=== PATIENT | female | born 1995 | race Caucasian/White ===

== ENCOUNTER 2018-07-08 13:18 | Emergency (ER) | payer OTHER ==
[2018-07-08 14:12] LABS: Absolute Lymphocytes (CBC) 1.8 K/uL (0.7-4.9); Absolute Monocytes 0.6 K/uL (0.1-1.3); Absolute Neutrophil 8.5 K/uL (1.8-8.0); Basophils % 0.3 % (0-1.3); Eosinophils % 1.5 % (0-4.4); Hematocrit 34.6 % (36.0-45.0); Lymphocytes % 16.3 % (15.3-44.8); MPV 9.9 fL (7.6-11.3); Monocytes % 5.7 % (3.3-12.3); RBC Red Blood Cell Count 3.78 M/uL (3.86-4.86)
[2018-07-08 15:14] LABS: BUN Blood Urea Nitrogen 11 mg/dL (7-18); Bicarbonate 30 mmol/L (21-32); Glucose Level 85 mg/dL (74-106); HCG, Quantitative 80863 mIU/mL (1-3); Potassium 3.5 mmol/L (3.5-5.1); Sodium Level 138 mmol/L (136-145)
[2018-07-08 15:29] LABS: Urine Blood NEGATIVE (NEG); Urine Glucose NEGATIVE (NEG); Urine Protein NEGATIVE (NEG); Urine Specific Gravity 1.015 (1.005-1.030)
--- NOTE | 2018-07-08 16:02 | EDPHYS ---
Physician Documentation [facility] Name: Hellen Leyva Age: 22 yrs Sex: Female : 1995 Arrival Date: 07/08/2018 Time: 13:22 Bed 17 Private MD: ED Physician Danny Delatorre HPI: 07/08 14:22 This 22 yrs old Female presents to ER via Ambulatory with complaints of kb Vaginal Bleeding, + Preg <12wks, Abdominal Cramping. 14:22 The patient presents to the emergency department with vaginal bleeding, described as kb spotting. The estimated gestational age is 7 weeks. course: care: at a clinic, Leakage of Fluid: none appreciated, Ultrasound: the patient has not had an ultrasound, Risk/complications: no obvious risks or complications are appreciated. Previous pregnancies: in previous pregnancies patient has had. Associated signs and symptoms: Pertinent positives: vaginal bleeding, abd cramping. The patient has not experienced similar symptoms in the past. The patient has not recently seen a physician. 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 - Social history:: Smoking status: Patient/guardian denies using tobacco. - Ebola Screening: : No symptoms or risks identified at this time. ROS: 14:22 Constitutional: Negative for fever, chills, and weight loss, Cardiovascular: Negative kb for chest pain, palpitations, and edema, Respiratory: Negative for shortness of breath, cough, wheezing, and pleuritic chest pain, MS/Extremity: Negative for injury and deformity, Skin: Negative for injury, rash, and discoloration, Neuro: Negative for headache, weakness, numbness, tingling, and seizure. 14:22 Abdomen/GI: Positive for abdominal cramps. 14:22 : Positive for vaginal bleeding. Exam: 14:22 Constitutional: This is a well developed, well nourished patient who is awake, alert, kb and in no acute distress. Head/Face: Normocephalic, atraumatic. Chest/axilla: Normal chest wall appearance and motion. Nontender with no deformity. No lesions are appreciated. Cardiovascular: Regular rate and rhythm with a normal S1 and S2. No gallops, murmurs, or rubs. Normal PMI, no JVD. No pulse deficits. Respiratory: Lungs have equal breath sounds bilaterally, clear to auscultation and percussion. No rales, rhonchi or wheezes noted. No increased work of breathing, no retractions or nasal flaring. Back: No spinal tenderness. No costovertebral tenderness. Full range of motion. Skin: Warm, dry with normal turgor. Normal color with no rashes, no lesions, and no evidence of cellulitis. MS/ Extremity: Pulses equal, no cyanosis. Neurovascular intact. Full, normal range of motion. Neuro: Awake and alert, GCS 15, oriented to person, place, time, and situation. Cranial nerves II-XII grossly intact. Motor strength 5/5 in all extremities. Sensory grossly intact. Cerebellar exam normal. Normal gait. 14:22 Abdomen/GI: Inspection: abdomen appears normal, Bowel sounds: normal, in all quadrants, Palpation: soft, in all quadrants, mild abdominal tenderness, in the right lower quadrant and left lower quadrant. Vital Signs: 13:34 BP 111 / 72; Pulse 65; Resp 16; Temp 98.6; Pulse Ox 99% ; Weight 61.23 kg; Height 5 ft. sv 8 in. (172.72 cm); Pain 4/10; 14:23 BP 97 / 55; Pulse 61; Resp 17; Pulse Ox 100% on R/A; tw2 15:55 BP 105 / 65; Pulse 57; Resp 17; Pulse Ox 99% on R/A; tw2 13:34 Body Mass Index 20.52 (61.23 kg, 172.72 cm) sv MDM: 13:37 Patient medically screened. kb 14:22 Data reviewed: vital signs, nurses notes. Data interpreted: Pulse oximetry: on room air kb is 100 %. Interpretation: normal. 16:00 Counseling: I had a detailed discussion with the patient and/or guardian regarding: the kb historical points, exam findings, and any diagnostic results supporting the discharge/admit diagnosis, lab results, radiology results, the need for outpatient follow up, an OB/Gyne specialist, to return to the emergency department if symptoms worsen or persist or if there are any questions or concerns that arise at home. 07/08 13:37 Order name: Quantitative Hcg; Complete Time: 15:15 kb 07/08 13:37 Order name: Abo/rh Typing; Complete Time: 15:41 kb 07/08 13:37 Order name: Basic Metabolic Panel; Complete Time: 15:15 kb 07/08 13:37 Order name: CBC with Diff; Complete Time: 14:34 kb 07/08 14:02 Order name: Urine Dipstick--Ancillary (enter results); Complete Time: 15:32 bd 07/08 14:02 Order name: Urine --Ancillary (enter results); Complete Time: 15:32 bd 07/08 13:37 Order name: Urine Test (obtain specimen); Complete Time: 14:04 kb 07/08 13:37 Order name: IV Saline Lock; Complete Time: 14:04 kb 07/08 13:37 Order name: Labs collected and sent; Complete Time: 14:04 kb 07/08 13:37 Order name: NPO; Complete Time: 13:50 kb 07/08 13:37 Order name: Urine Dipstick-Ancillary (obtain specimen); Complete Time: 14:04 kb 07/08 15:15 Order name: US Transvaginal Ob; Complete Time: 16:04 kb Administered Medications: No medications were administered Disposition: 07/09 07:04 Co-signature as Attending Physician, Danny Delatorre MD I agree with the assessment and gonzalez plan of care. Disposition: 07/08/18 16:01 Discharged to Home. Impression: Less than 8 weeks gestation of . - Condition is Stable. - Discharge Instructions: First Trimester of , [id number]. - Medication Reconciliation Form, Thank You Letter, Antibiotic Education, Prescription Opioid Use form. - Follow up: Emergency Department; When: As needed; Reason: Worsening of condition. Follow up: Private Physician; When: 2 - 3 days; Reason: Recheck today's complaints, Continuance of care, Re-evaluation by your physician. Signatures: Dispatcher [employer] Gabriela Herrera FNP-C FNP-Ckb Verde, Stephanie RN Danny Ortiz MD MD cha Wise, Tara RN RN tw2 Corrections: (The following items were deleted from the chart) 07/08 16:09 16:01 07/08/2018 16:01 Discharged to Home. Impression: Less than 8 weeks gestation of tw2 . Condition is Stable. Forms are Medication Reconciliation Form, Thank You Letter, Antibiotic Education, Prescription Opioid Use. Follow up: Emergency Department; When: As needed; Reason: Worsening of condition. Follow up: Private Physician; When: 2 - 3 days; Reason: Recheck today's complaints, Continuance of care, Re-evaluation by your physician. kb
--- NOTE | 2018-07-08 16:02 | RAD REPORT ---
EXAM DESCRIPTION: US - Transvaginal OB - 07/08/2018 3:49 pm CLINICAL HISTORY: Abdominal pain, abdominal cramping, vaginal bleeding, Preliminary findings provided at the time of the study. COMPARISON: None. TECHNIQUE: Endovaginal sonography performed. FINDINGS: Cervical canal is long and closed. No hematoma or other abnormality within the cervical ca nal. A 20 x 3 millimeter subchorionic hemorrhage is present along the inferior margin of the normally shap ed gestational sac. pole is identified with heart rate 121 BPM. Ovaries show normal blood flow within the stroma. No suspicious ovarian or adnexal finding. No cul-de -sac abnormality seen. An nabothian cyst is present. [place]-rump length measurement corresponds to a 7 week 1 day age. Calculated MAYLIN is 02/23/2019. IMPRESSION: Single 7 week 1 day IUP within a normal shaped gestational sac. No cervical canal abnorm ality. Small subchorionic hemorrhage along the inferior margin not considered significant at the current siz e. No ovarian or adnexal suspicious finding.
--- NOTE | 2018-07-08 16:02 | ER ---
Nurse's Notes [facility] Name: Hellen Leyva Age: 22 yrs Sex: Female : 1995 Arrival Date: 07/08/2018 Time: 13:22 Bed 17 Private MD: Diagnosis: Less than 8 weeks gestation of Presentation: 07/08 13:32 Presenting complaint: Patient states: vaginal bleeding (spotting) and abd cramping x 1 sv week. Pt reports urinating in the bed at night and there was blood on the bed as well. Pt is 7 wks . Transition of care: patient was not received from another setting of care. Onset of symptoms was July 01, 2018. Care prior to arrival: None. 13:32 Method Of Arrival: Ambulatory sv 13:32 Acuity: LENORE 3 sv 14:06 Risk Assessment: Do you want to hurt yourself or someone else? Patient reports no tw2 desire to harm self or others. Initial Sepsis Screen: Does the patient meet any 2 criteria? No. Patient's initial sepsis screen is negative. Does the patient have a suspected source of infection? No. Patient's initial sepsis screen is negative. Triage Assessment: 13:35 General: Appears in no apparent distress. comfortable, Behavior is calm, cooperative, sv appropriate for age. Pain: Complains of pain in abdomen Pain currently is 4 out of 10 on a pain scale. Quality of pain is described as crampy. Neuro: Level of Consciousness is awake, alert, obeys commands, Oriented to person, place, time, situation, Gait is steady. Respiratory: Respiratory effort is even, unlabored, Respiratory pattern is regular, symmetrical. BLACK BELT: 14:22 3, 0, Living 2, LMP 05/21/2018 kb Historical: - Allergies: 13:34 No Known Allergies; sv - PMHx: 13:34 None; sv - PSHx: 13:34 None; sv - Immunization history:: Adult Immunizations up to date. - Social history:: Smoking status: Patient/guardian denies using tobacco. - Ebola Screening: : No symptoms or risks identified at this time. Screenin:07 Abuse screen: Denies threats or abuse. Nutritional screening: No deficits noted. tw2 Tuberculosis screening: No symptoms or risk factors identified. Fall Risk None identified. Assessment: 13:35 Obstetrical Assessment: Patient reports abdominal cramping, vag bleeding, approx 7 tw2 weeks pg. General: Appears in no apparent distress. slender, well groomed, Behavior is calm, cooperative, appropriate for age. Pain: Complains of pain in abdomen and pelvis. Neuro: Level of Consciousness is awake, alert, obeys commands, Oriented to person, place, time, situation. Cardiovascular: Heart tones S1 S2 Capillary refill < 3 seconds Patient's skin is warm and dry. Respiratory: Airway is patent Respiratory effort is even, unlabored, Respiratory pattern is regular, symmetrical, Breath sounds are clear bilaterally. GI: Abdomen is flat, Bowel sounds present X 4 quads. Reports lower abdominal pain, nausea. : Reports vaginal bleeding that is. EENT: No signs and/or symptoms were reported regarding the EENT system. Derm: No signs and/or symptoms reported regarding the dermatologic system. Musculoskeletal: Range of motion: intact in all extremities. 14:23 Reassessment: Patient appears in no apparent distress at this time. No changes from tw2 previously documented assessment. Patient and/or family updated on plan of care and expected duration. Pain level reassessed. Patient is alert, oriented x 3, equal unlabored respirations, skin warm/dry/pink. 15:55 Reassessment: Patient appears in no apparent distress at this time. No changes from tw2 previously documented assessment. Patient and/or family updated on plan of care and expected duration. Pain level reassessed. Patient is alert, oriented x 3, equal unlabored respirations, skin warm/dry/pink. Vital Signs: 13:34 BP 111 / 72; Pulse 65; Resp 16; Temp 98.6; Pulse Ox 99% ; Weight 61.23 kg; Height 5 ft. sv 8 in. (172.72 cm); Pain 4/10; 14:23 BP 97 / 55; Pulse 61; Resp 17; Pulse Ox 100% on R/A; tw2 15:55 BP 105 / 65; Pulse 57; Resp 17; Pulse Ox 99% on R/A; tw2 13:34 Body Mass Index 20.52 (61.23 kg, 172.72 cm) sv Vitals: 14:06 Heart Tones n/a 7 wks. tw2 ED Course: 13:22 Patient arrived in ED. mr 13:33 Triage completed. sv 13:34 Arm band placed on. sv 13:35 Bed in low position. Call light in reach. Pulse ox on. NIBP on. Warm blanket given. tw2 13:36 [facility]ri[facility] De La [facility]C [facility]. kb 13:36 Danny Delatorre MD is Attending Physician. kb 13:50 Camila Villafuerte, RN is Primary Nurse. tw2 13:53 Inserted saline lock: 22 gauge in right antecubital area, using aseptic technique. tw2 Blood collected. 15:49 US Transvaginal Ob In Process Unspecified. EDMS 15:59 Ultrasound completed. Patient tolerated well. Patient moved back from ultrasound. aa4 16:09 No provider procedures requiring assistance completed. IV discontinued, intact, tw2 bleeding controlled, No redness/swelling at site. Pressure dressing applied. Administered Medications: No medications were administered Outcome: 16:01 Discharge ordered by . kb 16:09 Discharged to home ambulatory. tw2 16:09 Condition: stable 16:09 Discharge instructions given to patient, Instructed on discharge instructions, follow up and referral plans. Demonstrated understanding of instructions, follow-up care. 16:09 Patient left the ED. tw2 Signatures: Dispatcher [employer] EDME Gabriela De La Cruz FNP-C FNP-Ckb Verde, Stephanie RN RN CramerMaura mr RaymondNellie manjarrez aa4 Camila Villafuerte, RN RN tw2 Corrections: (The following items were deleted from the chart) 13:35 13:34 Pulse 65bpm; Resp 16bpm; Pulse Ox 99%; Temp 98.6F; 61.23 kg; Height 5 ft. 8 in.; sv BMI: 20.5; Pain 4/10; sv
[2018-07-08 19:02] VITALS: TEMP 98.6
[2018-07-08 19:04] VITALS: BP 105/65; O2SAT 99
== END 2018-07-08 16:09 | disposition home or self-care (01) ==
LOC: ER 13:18
DX: O26.851 Spotting complicating pregnancy, first trimester (principal); Z3A.01 Less than 8 weeks gestation of pregnancy
CPT/HCPCS: 36415; 76817; 80048; 81003; 81025; 84702; 85025; 86900; 86901; 99284

== ENCOUNTER 2018-10-01 21:14 | Emergency (ER) | payer OTHER ==
--- OUTSIDE RECORDS SUMMARY | 2018-10-01 21:16 | XMS REPORT ---
:1995 [facility] [address] [place] [address] Dr. Almaraz [address] [id number] Care Team Providers Name Role Phone Unavailable Unavailable Unavailable Problems This patient has no known problems. Allergies, Adverse Reactions, Alerts This patient has no known allergies or adverse reactions. Medications This patient has no known medications.
[2018-10-01] MEDS ORDERED: NA CHLORIDE 0.9% 500 ML ONE (22:30)
[2018-10-01 22:35] LABS: BUN Blood Urea Nitrogen 8 mg/dL (7-18); Bicarbonate 27 mmol/L (21-32); Glucose Level 85 mg/dL (74-106); Potassium 3.5 mmol/L (3.5-5.1); Sodium Level 140 mmol/L (136-145)
[2018-10-01 22:47] LABS: Absolute Monocytes 0.6 K/uL (0.1-1.3); Absolute Neutrophil 7.8 K/uL (1.8-8.0); Basophils % 1.2 % (0-1.3); Eosinophils % 1.5 % (0-4.4); Hematocrit 31.3 % (36.0-45.0); Lymphocytes % 19.1 % (15.3-44.8); MPV 10.2 fL (7.6-11.3); Monocytes % 5.2 % (3.3-12.3)
[2018-10-02 01:11] LABS: Urine Blood NEGATIVE (NEG); Urine Glucose NEGATIVE (NEG); Urine Protein NEGATIVE (NEG)
[2018-10-02 01:13] LABS: Urine Mucus 2+ /HPF (NONE SEEN)
[2018-10-02 01:14] LABS: Urine Bacteria <20 /HPF (<20); Urine Culture Reflex Order NOT NEEDED; Urine RBC <5 /HPF (NONE SEEN)
--- NOTE | 2018-10-02 01:18 | ER ---
Nurse's Notes [facility] Name: Hellen Leyva Age: 22 yrs Sex: Female : 1995 Arrival Date: 10/01/2018 Time: 21:15 Bed 18 Private MD: Wendy Maddox Diagnosis: Palpitations Presentation: 10/01 21:23 Presenting complaint: Patient states: headache, dizzy, black spots in vision anderson, ak1 tingling in hands and feet that last 30 plus seconds. last "episode" was a lunch time today. 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 pt denies any other the s/s currently. Transition of care: patient was not received from another setting of care. Onset of symptoms is unknown. Risk Assessment: Do you want to hurt yourself or someone else? Patient reports no desire to harm self or others. Care prior to arrival: None. 21:23 Method Of Arrival: Ambulatory ak1 21:23 Acuity: LENORE 3 ak1 21:34 Initial Sepsis Screen: Does the patient meet any 2 criteria? No. Patient's initial ed1 sepsis screen is negative. Does the patient have a suspected source of infection? No. Patient's initial sepsis screen is negative. Triage Assessment: 21:24 General: Appears in no apparent distress. ak1 SAMPLER RADIOACTIVE WASTE: 21:24 LMP 05/15/2018, Verified, EDC 02/19/2019, Gestational age from LMP: 20 weeks 0 ak1 days Historical: - Allergies: 21:24 No Known Allergies; ak1 - Home Meds: 21:24 Vitamin Oral [Active]; ak1 - PMHx: 21:24 None; ak1 - PSHx: 21:24 None; ak1 - Immunization history:: Adult Immunizations up to date. - Social history:: Smoking status: Patient/guardian denies using tobacco. - Ebola Screening: : No symptoms or risks identified at this time. - Family history:: not pertinent. - Hospitalizations: : No recent hospitalization is reported. Screenin:34 Abuse screen: Denies threats or abuse. Denies injuries from another. Nutritional ed1 screening: No deficits noted. Tuberculosis screening: No symptoms or risk factors identified. Fall Risk None identified. Assessment: 21:34 General: Appears in no apparent distress. Behavior is calm, cooperative. Pain: Denies ed1 pain. Neuro: Level of Consciousness is awake, alert, obeys commands, Oriented to person, place, time, situation, Reports dizziness, numbness in right hand, left hand, right foot and left foot. Cardiovascular: Denies chest pain, Heart tones S1 S2 present. Respiratory: Airway is patent Respiratory effort is even, unlabored, Respiratory pattern is regular, symmetrical, Breath sounds are clear bilaterally. Denies cough, shortness of breath. GI: Patient currently denies diarrhea, nausea, vomiting. : No signs and/or symptoms were reported regarding the genitourinary system. EENT: No signs and/or symptoms were reported regarding the EENT system. Derm: Skin is intact, is healthy with good turgor, Skin is dry, Skin is normal, Skin temperature is warm. Musculoskeletal: Circulation, motion, and sensation intact. Range of motion: intact in all extremities. 22:44 Reassessment: Patient appears in no apparent distress at this time. No changes from ed1 previously documented assessment. Patient and/or family updated on plan of care and expected duration. Pain level reassessed. Patient is alert, oriented x 3, equal unlabored respirations, skin warm/dry/pink. Patient denies pain at this time. 23:40 Reassessment: Patient appears in no apparent distress at this time. Patient and/or ed1 family updated on plan of care and expected duration. Pain level reassessed. Patient is alert, oriented x 3, equal unlabored respirations, skin warm/dry/pink. Patient denies pain at this time. Neuro: Denies dizziness. 10/02 00:54 Reassessment: Patient appears in no apparent distress at this time. No changes from ed1 previously documented assessment. Patient and/or family updated on plan of care and expected duration. Pain level reassessed. Patient is alert, oriented x 3, equal unlabored respirations, skin warm/dry/pink. Patient denies pain at this time. Vital Signs: 10/01 21:24 BP 106 / 72; Pulse 80; Resp 18; Temp 98.4; Pulse Ox 98% on R/A; Weight 65.32 kg (R); ak1 Height 5 ft. 8 in. (172.72 cm) (R); Pain 0/10; 22:44 BP 97 / 61; Pulse 66; Resp 16; Temp 98.3(O); Pulse Ox 100% on R/A; Pain 0/10; ed1 23:40 BP 103 / 78; Pulse 75; Resp 19; Pulse Ox 100% on R/A; Pain 0/10; ed1 10/02 00:54 BP 106 / 62; Pulse 70; Resp 17; Pulse Ox 100% on R/A; Pain 0/10; ed1 10/01 21:24 Body Mass Index 21.89 (65.32 kg, 172.72 cm) ak1 Vitals: 10/01 22:28 Heart Tones 158. ed1 ED Course: 21:15 Patient arrived in ED. am2 21:16 Wendy Maddox is Private Physician. am2 21:24 Triage completed. ak1 21:24 Arm band placed on Patient placed in an exam room, on a stretcher, Patient notified of ak1 wait time. 21:27 Yaya Martin MD is Attending Physician. rn 21:34 Patient has correct armband on for positive identification. Placed in gown. Bed in low ed1 position. Call light in reach. Side rails up X 1. Pulse ox on. NIBP on. Warm blanket given. 21:37 Alejandra Cole, RN is Primary Nurse. ed1 22:21 Initial lab(s) drawn, by me, sent to lab. EKG done, by ED staff, reviewed by Yaya Martin MD. Inserted saline lock: 22 gauge in right antecubital area, using aseptic technique. Blood collected. 04 01:26 No provider procedures requiring assistance completed. IV discontinued, intact, ed1 bleeding controlled, No redness/swelling at site. Pressure dressing applied. Administered Medications: 10/01 22:20 Drug: NS 0.9% 500 ml Route: IV; Rate: bolus; Site: right antecubital; ed1 23:20 Follow up: IV Status: Completed infusion; IV Intake: 500ml ed1 Intake: 23:20 IV: 500ml; Total: 500ml. ed1 Outcome: 10/02 01:17 Discharge ordered by . rn 01:26 Discharged to home ambulatory. ed1 01:26 Condition: good 01:26 Discharge instructions given to patient, Instructed on discharge instructions, follow up and referral plans. Demonstrated understanding of instructions, follow-up care. 01:27 Patient left the ED. ed1 Signatures: Yaya Martin MD MD rn Riggs, Erika RN RN ed1 Elisa Brito RN RN ak1 Nellie Orourke am2
--- NOTE | 2018-10-02 01:18 | EDPHYS ---
Physician Documentation [facility] Name: Hellen Leyva Age: 22 yrs Sex: Female : 1995 Arrival Date: 10/01/2018 Time: 21:15 Bed 18 Private MD: Wendy Maddox ED Physician Yaya Martin HPI: 10/01 21:48 This 22 yrs old Female presents to ER via Ambulatory with complaints of rn Palpitations, 20 wks . 21:48 The patient presents with a history of heart racing. Context: The symptoms occur at rn rest. Onset: The symptoms/episode began/occurred today. Duration: The patient or guardian reports a single episode, that is now resolved. Modifying factors: The symptoms are aggravated by nothing. The symptoms are alleviated by nothing. Severity of symptoms: At their worst the symptoms were moderate in the emergency department the symptoms have improved. The patient has experienced a previous episode. Reports has had 2 episodes lately of feeling heart racing, today had chest dull pain, lasted approx 30 seconds, she doesn't recall passing out, both episodes while seated, no seizure like activity, currently asymptomatic. Reports 20 weeks . Has known sub-chorionic bleed, that OB is watching, is feeling baby moving and no increase in her vaginal bleeding. Reports today happened at work, her boss stated she was staring at ground for approx 30 seconds, did not fall to ground or have syncopal episode. No known family cardiac problems at her age.. 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 - Social history:: Smoking status: Patient/guardian denies using tobacco. - Ebola Screening: : No symptoms or risks identified at this time. - Family history:: not pertinent. - Hospitalizations: : No recent hospitalization is reported. ROS: 21:48 Constitutional: Negative for fever, chills, and weight loss, Eyes: Negative for injury, rn pain, redness, and discharge, Neck: Negative for injury, pain, and swelling, Cardiovascular: Negative for edema Respiratory: Negative for shortness of breath, cough, wheezing, and pleuritic chest pain, Abdomen/GI: Negative for abdominal pain, nausea, vomiting, diarrhea, and constipation, : Negative for injury, bleeding, discharge, and swelling, MS/Extremity: Negative for injury and deformity, Skin: Negative for injury, rash, and discoloration, Neuro: Negative for headache, weakness, numbness, tingling, and seizure. Exam: 21:48 Constitutional: This is a well developed, well nourished patient who is awake, alert, rn and in no acute distress. Head/Face: Normocephalic, atraumatic. Eyes: Pupils equal round and reactive to light, extra-ocular motions intact. Lids and lashes normal. Conjunctiva and sclera are non-icteric and not injected. Cornea within normal limits. Periorbital areas with no swelling, redness, or edema. ENT: MMM Cardiovascular: Regular rate and rhythm with a normal S1 and S2. No gallops, murmurs, or No JVD. No pulse deficits. Respiratory: Lungs have equal breath sounds bilaterally, clear to auscultation. No increased work of breathing, no retractions or nasal flaring. Abdomen/GI: soft, non-tender Skin: Warm, dry with normal turgor. Normal color with no rashes, no lesions, and no evidence of cellulitis. MS/ Extremity: Pulses equal, no cyanosis. Neurovascular intact. Full, normal range of motion. Equal circumference. Neuro: Awake and alert, GCS 15, oriented to person, place, time, and situation. Cranial nerves II-XII grossly intact. Motor strength 5/5 in all extremities. Sensory grossly intact. Vital Signs: 21:24 BP 106 / 72; Pulse 80; Resp 18; Temp 98.4; Pulse Ox 98% on R/A; Weight 65.32 kg (R); ak1 Height 5 ft. 8 in. (172.72 cm) (R); Pain 0/10; 22:44 BP 97 / 61; Pulse 66; Resp 16; Temp 98.3(O); Pulse Ox 100% on R/A; Pain 0/10; ed1 23:40 BP 103 / 78; Pulse 75; Resp 19; Pulse Ox 100% on R/A; Pain 0/10; ed1 10/02 00:54 BP 106 / 62; Pulse 70; Resp 17; Pulse Ox 100% on R/A; Pain 0/10; ed1 10/01 21:24 Body Mass Index 21.89 (65.32 kg, 172.72 cm) ak1 MDM: 10/01 21:27 Patient medically screened. rn 10/02 01:16 Data reviewed: vital signs, nurses notes, lab test result(s), EKG, and as a result, I rn will discharge patient. Counseling: I had a detailed discussion with the patient and/or guardian regarding: the historical points, exam findings, and any diagnostic results supporting the discharge/admit diagnosis, lab results, the need for outpatient follow up, to return to the emergency department if symptoms worsen or persist or if there are any questions or concerns that arise at home. Special discussion: I discussed with the patient/guardian in detail that at this point there is no indication for admission to the hospital. It is understood, however, that if the symptoms persist or worsen the patient needs to return immediately for re-evaluation. Based on the history and exam findings, there is no indication for further emergent testing or inpatient evaluation. I discussed with the patient/guardian the need to see the supervisor [facility] for further evaluation of the symptoms. I discussed with the patient/guardian the need to see the OB Gyne specialist for further evaluation of the symptoms. I discussed with the patient/guardian the need to see the primary care provider for further evaluation of the symptoms. ED course: Normal w/u here, asymptomatic, normal vitals, neg UA, will dc home, recommend f/u with OB and cardiology for holter given sporadic and repeated episodes of palpitations. . 10/01 21:39 Order name: CBC with Diff; Complete Time: 23: rn 10/01 21:39 Order name: Basic Metabolic Panel; Complete Time: 23: rn 10/01 21:39 Order name: Urine Microscopic Only; Complete Time: 01:16 rn 10/01 23:27 Order name: Urine Dipstick--Ancillary (enter results); Complete Time: : ar 10/01 23:27 Order name: Urine --Ancillary (enter results); Complete Time: 01: ar5 10/01 21:39 Order name: IV Start; Complete Time: 22:17 rn 10/01 21:39 Order name: Urine Dipstick-Ancillary (obtain specimen); Complete Time: 01:22 rn 10/01 21:39 Order name: EKG; Complete Time: 21:39 rn 10/01 21:39 Order name: EKG - Nurse/Tech; Complete Time: 22:17 rn 10/01 21:39 Order name: FHT's; Complete Time: 22:28 rn Administered Medications: 10/01 22:20 Drug: NS 0.9% 500 ml Route: IV; Rate: bolus; Site: right antecubital; ed1 23:20 Follow up: IV Status: Completed infusion; IV Intake: 500ml ed1 Disposition: 10/02/18 01:17 Discharged to Home. Impression: Palpitations. - Condition is Stable. - Discharge Instructions: Holter Monitoring, Palpitations. - Medication Reconciliation Form, Thank You Letter, Antibiotic Education, Prescription Opioid Use form. - Follow up: Private Physician; When: As needed; Reason: Recheck today's complaints, Re-evaluation by your physician. - Problem is new. - Symptoms have improved. Signatures: Dispatcher [employer] EDMS Yaya Martin MD MD rn Riggs, Erika, RN RN ed1 Elisa Brito RN RN ak1 Corrections: (The following items were deleted from the chart) 10/02 01:27 01:17 10/02/2018 01:17 Discharged to Home. Impression: Palpitations. Condition is ed1 Stable. Forms are Medication Reconciliation Form, Thank You Letter, Antibiotic Education, Prescription Opioid Use. Follow up: Private Physician; When: As needed; Reason: Recheck today's complaints, Re-evaluation by your physician. Problem is new. Symptoms have improved. rn
[2018-10-02 02:25] VITALS: TEMP 98.3; O2SAT 100
[2018-10-02 02:28] VITALS: BP 106/62
--- NOTE | 2018-10-02 07:59 | EKG ---
Test Date: 2018-10-01 Test Time: 22:15:45 Environmental Services Technician: THAGN MEASUREMENT RESULTS: Intervals: Rate: 61 VA: 138 QRSD: 100 QT: 404 QTc: 406 Voca: P: 46 VA: 138 QRS: 38 T: 27 INTERPRETIVE STATEMENTS: Normal sinus rhythm Incomplete right bundle branch block Borderline ECG Compared to ECG 09/16/2016 02:25:27 ST (T wave) deviation no longer present Prolonged QT interval no longer present Electronically Signed On 10-02-18 07:58:45 CDT by Derrick Bernal
== END 2018-10-02 01:27 | disposition home or self-care (01) ==
LOC: ER 21:14
DX: O26.892 Other specified pregnancy related conditions, second trimester (principal); R00.2 Palpitations
CPT/HCPCS: 36415; 80048; 81003; 81015; 81025; 85025; 93005; 96360; 99284

== ENCOUNTER 2019-01-07 09:59 | Emergency (ER) | payer BC, OTHER ==
--- OUTSIDE RECORDS SUMMARY | 2019-01-07 10:01 | XMS REPORT ---
:1995 [facility] Address [address] [place] [address] Dr. Almaraz [address] [place] [id number] Care Team Providers Name Role Phone Unavailable Unavailable Unavailable Problems This patient has no known problems. Allergies, Adverse Reactions, Alerts This patient has no known allergies or adverse reactions. Medications This patient has no known medications.
--- OUTSIDE RECORDS SUMMARY | 2019-01-07 10:01 | XMS REPORT | Summary of Care ---
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 PSYCHOLOGY/MENTAL HEALTH MD Adolescent [address] [place] [address] [address] [place] [address] (Routine) Status Reason Specialty Diagnoses / Referred By Referred To Procedures Contact Contact New Request Location Psychiatry Diagnoses Depression affecting in third trimester, antepartum Moderate episode of recurrent major depressive disorder Anxiety disorder, unspecified type Wendy Maddox, Preference Procedures CONSULT/REFERRAL PSYCHIATRY ADULT [address] [place] [address] [address] [place] [address] Reason for Visit Reason Comments ROUTINE VISIT Anxiety Depression Encounter Details Date Type Department Care Team Description 01/02/2019 Routine [facility] Women's Wendy Maddox MD Supervision of high risk in third trimester (Primary Dx); Visit Healthcare- [address] [place] [address] 32 weeks gestation of ; Franklin KENNEDY At risk for increased anxiety; [address] [place] [address] [address], [address] Depression affecting in third trimester, antepartum; [address] [place], [place] Moderate episode of recurrent major depressive disorder; [place] [address] Anxiety disorder, [place] [id number] Allergies No Known Allergiesdocumented as of this encounter (statuses as of 01/02/2019) Medications Medication Sig Dispensed Refills Start Date End Date Status vit Take by mouth. 0 Active calc,iron,folic ( VITAMIN ORAL) SERTraline (ZOLOFT) 50 Take 1 tablet by 30 tablet 2 01/02/2019 Active mg tabletIndications: mouth daily. Depression affecting in third trimester, antepartum, Moderate episode of recurrent major depressive disorder hydrOXYzine 25 mg Take 1 tablet by 30 tablet 2 01/02/2019 Active tabletIndications: mouth at bedtime. Anxiety disorder, unspecified type documented as of this encounter (statuses as of 01/02/2019) Active Problems Estimated Date of Delivery Comments Yes 02/25/2019 Based on last menstrual period of 05/21/2018 (Exact Date) No additional problems on filedocumented as of this encounter (statuses as of ) Immunizations Name Administration Dates Next Due TDAP (ADACEL) VACCINE 12/19/2018 documented as of this encounter Social History Tobacco Use Types Packs/Day Years Used Date Former Smoker Smokeless Tobacco: Never Used Alcohol Use Drinks/Week oz/Week Comments No not currently Estimated Date of Delivery Comments Yes 02/25/2019 Based on last menstrual period of 05/21/2018 (Exact Date) Sex Assigned at Date Recorded Not on file Job Start Date Occupation Industry Not on file Not on file Not on file Travel History Travel Start Travel End No recent travel history available. documented as of this encounter Last Filed Vital Signs Vital Sign Reading Time Taken Comments Blood Pressure 98/58 01/02/2019 11:12 AM CDT Pulse 70 01/02/2019 11:12 AM CDT Temperature 36.6 C (97.8 F) 01/02/2019 11:12 AM CDT Respiratory Rate 18 01/02/2019 11:12 AM CDT Oxygen Saturation - - Inhaled Oxygen Concentration - - Weight 72.6 kg (160 lb) 01/02/2019 11:12 AM CDT Height 172.7 cm (5' 8") 01/02/2019 11:12 AM CDT Body Mass Index 24.33 01/02/2019 11:12 AM CDT documented in this encounter Patient Instructions Patient InstructionsRoscoe Watkins 01/02/2019 11:00 AM CDT Tailor Sit, Trunk Turn for Back Pain During Before trying these exercises, talk to your healthcare provider to make sure they are safe for you. Ask your healthcare provider how many times to do each exercise. Tailor sit Trunk turns Tailor sit This exercise makes your thigh, pelvic, and hip muscles more flexible. 1. Sit on the floor with the soles of your feet together. Your back should be straight. 2. Gently lean forward until you feel a mild stretch inyour hip and thigh muscles. Your back should remain straight. Dont push down on your legs with your hands. 3. Hold and count to 5, then relax. Trunk turns This helps make your trunk (from your shoulders to your hips) more flexible. 1. Sit on the floor with your legs crossed. Your back should be straight. 2. Put your left hand on your right knee. Rest your right hand on the floor to support yourself and help you balance. 3. Slowly twist right. To do this, turn your head, shoulders, and chest as far right as you comfortably can. Keep your hips, knees, and feet in place. 4. Hold for 5 counts. Then change sides and slowly twist left. Date Last Reviewed: 07/12/201719998668-0380 [employer]. [address] [place] [address]. All rights reserved. This information is not intended as a substitute for professional medical care. Always follow your healthcare professional's instructions. Relieving Back Pain During : Wall Stretch, Body Bend Before trying these exercises, talk to your healthcare provider to make sure they are safe for you. Ask your healthcare provider how many times to do each exercise. Wall stretch Body bend Wall stretch This strengthens and loosens the muscles in your upper back: 4. Lean against a wall with a firm pillow or rolled towel under your shoulder blades. Your feet should be about 12 inches from the wall and shoulder-width apart. Point your chin down. 5. Breathe in. Push your shoulders, neck, and head against the wall. You will feel a stretch in yourshoulders. 6. Hold for 5 counts. Then breathe out, and relax your shoulders and neck. Body bend This strengthens your back and buttocks muscles: 5. Stand with your legs shoulder-width apart. Put your hands on your upper thighs and bend your knees slightly. 6. Slowly bend forward at the hips. Push your hips back and keep your shoulders up. Make sure your back is straight. Youll feel a stretch in your upper thighs. Youll also feel your back muscles holding you in position. 7. Hold for 5 counts, then straighten. Date Last Reviewed: 07/12/2017 [employer]. [address] [place] [address]. All rights reserved. This information is not intended as a substitute for professional medical care. Always follow your healthcare professional's instructions. Back Pain During : Moving Safely Learning the proper ways to bend, lift, and carry objects may help relieve back strain. It will alsohelp you protect your back after your baby is born. Remember , if youre having trouble protecting your back, its OK to ask the people around you for help! Bending Lifting Carrying Bending To protect your back as you bend: Put 1 foot slightly in front of the other. Bend at the knees and hips, pushing your hips backward. Keep your upper body as straight as you can. Face forward. Try to keep your ears, shoulders, and hips in a line. Dont hold your breath. Lifting To lift a large object or a child: Get as close to the load as you can. Face forward, to help keep your ears and shoulders aligned. Use the muscles in your thighs and buttocks to stand up. As you lift, tighten your stomach and pelvic floor muscles. Dont hold your breath. Avoid twisting. Carrying To carry a load safely: Carry an object or child in front of you, not resting on your hip. Break up your load into 2 smaller bags, if you can. Carry 1 bag on each side to maintain balance.Or, break the load into smaller ones and take more trips. Try to tighten your stomach and pelvic floormuscles as you walk. This helps take weight off your back. Date Last Reviewed: 07/12/2017 [employer]. [address] [place] [address]. All rights reserved. This information is not intended as a substitute for professional medical care. Always follow your healthcare professional's instructions. Back Pain During : Positioning Yourself When standing, resting a foot on a low block can ease back pain. You likely position yourself differently now than you did before you were . Did you know that standing, sitting, or lying in certain ways can lead to back pain? To ease pain, use positions thatsupport your body comfortably. Tips for good posture Using good posture means holding yourself so that your spine is aligned and your muscles can work without strain. To use good posture: Raise your chest and head. Try to keep your ears lined up over your shoulders. Use your stomach muscles to pull in your stomach. This reduces the amount of weight your back must support. Keep your pelvis level. Think of your pelvis as a bowl of water that will spill if it tips too far forward or backward. Standing If you must stand for long periods, try to change positions every 15 minutes. This gives your muscles a break. When standing, also: Keep your legs slightly apart. This helps you balance your weight. Rest one foot on a book, ledge, or low stool. Every few minutes, switch legs. Wear comfortable shoes with padded soles and arch support, like athletic shoes. Sitting When sitting in a chair or car, make sure your spines lumbar curve is supported. Use a chair withlumbar support built in, or put a firm pillow against your lower back. Also try the following: Sit with your knees slightly lower than your hips. Dont cross your legs. Take deep breaths often. This helps keep your spine and stomach in the best position. Vary your activity each hour. For instance, get up from your desk and take a 5-minute walk aroundthe office. Lying down To lie safely and comfortably: Lie on your side with your knees slightly bent. This takes pressure off your uterus and improvesblood flow to your baby. Place pillows under your abdomen and between your knees. To get out of bed, roll onto your side. Use your arms to push yourself into a seated position. Scoot to the edge of the bed and place your feet on the floor. Lean forward, then use your leg muscles to stand. Consider investing in a firm mattress. Lifting Tip to safely lift: Do not bend over from the waist to pick things upsquat down, bend your knees, and keep your back straight. Date Last Reviewed: 07/12/201719990793-1917 [employer]. [address] [place] [address]. All rights reserved. This information is not intended as a substitute for professional medical care. Always follow your healthcare professional's instructions. [employer] Common Changes During Certain changes and discomforts occur during and are perfectly normal. Some of these changes include backache, frequent urination, and constipation. This video describes typical changes, how to safely relieve your discomfort, and what circumstances require a visit to your doctor. To watch the video: Scan the QR code Using your mobile device, scan the following code: OR Go to the website: www.[employer] Enter the prescription code: KWX [employer]. [address] [place] [address]. All rights reserved. This information is not intended as a substitute for professional medical care. Always follow your healthcare professional's instructions. Adapting to : Third Trimester Although common during , some discomforts may seem worse in the final weeks. Simple lifestyle changes can help. Take care of yourself. And ask your partner to help out with small tasks. Limiting leg problems Ways to combat leg issues: Wear support hose all day. Avoid snug shoes and clothes that bind, like tight pants and socks with elastic tops. Sit with your feet and legs raised often. Caring for your breasts Tips to follow include: Wash with plain water. Avoid using harsh soaps or rubbing alcohol. They may cause dryness. Wear a nursing bra for extra support. It can also hide any leaks from your nipples. Controlling hemorrhoids Ways to avoid hemorrhoids include: Eat foods that are high in fiber. Also, exercise and drink enough fluids. This will reduce constipation and hemorrhoids. Sleep and nap on your side. This limits pressure on the veinsof your rectum. Try not to stand or sit for long periods. Controlling back pain As your body changes during , your back must work in new ways. Back pain is due to many causes. Physical changes in your body can strain your back and its supporting muscles. Also, hormones (chemicals that carry messages throughout the body) increase during . This can affect howyour muscles and joints work together. All of these changes can lead to pain. Pain may be felt in the upper or lower back. Pain is also common in the pelvis. Some women have sciatica. This is paincaused by pressure on the sciatic nerve running down the back of the leg. Ask your healthcare provider for specific tips and exercises to help control your back pain. Tips to help you rest Good rest and sleep will help you feel better. Here are some ideas: Ask your partner to massage your shoulders, neck, or back. Limit the errands you do each day. Lie down in the afternoon or after work for a few minutes. Take a warm bath before you go to sleep. Drink warm milk or teas without caffeine. Avoid coffee, black tea, and cola. Stopping heartburn Avoid spicy, greasy, fried,or acidic foods. Eat small amounts more often. Eat slowly. Wait 2 hours after eating before lying down. Sleep with your upper body raised 6 inches. Managing mood swings Ways to manage mood swings include: Know that mood changes are normal. Exercise often, but get plenty of rest. Address any concerns and limit stress. Talking to your partner, other women, or your healthcare provider may help. Dealing with urinary frequency Tips to deal with having to urinate often include: Drink plenty of water all day. If you drink a lot in the evening, though, you may have to get up more in the night. Limit coffee, black tea, and cola. Date Last Reviewed: 07/12/201719990467-6338 [employer]. [address] [place] [address]. All rights reserved. This information is not intended as a substitute for professional medical care. Always follow your healthcare professional's instructions. Comfort Tips During Talk with yourhealthcare provider before using pain-relieving medicine at any time during your . First trimester tips Nausea Get up slowly. Eat a few unsalted crackers before you get out of bed. Avoid smells that bother you. Eat smallbland low fat, light high-protein meals at frequent intervals. Sip on water, weaktea, or clear soft drinks, like jakob sondra.Eat ice chips. Fatigue Take catnaps when you can. Get regular exercise. Accept help from others. Practice good sleep habits, like going to bed and getting up at the same time each day. Use your bed only for sleep and sex. Mood swings Talk about your feelings with others, including other mothers. Limit sugar, chocolate, and caffeine. Eat a healthy diet. Dont skip meals. Get regular exercise. Headaches Get fresh air and exercise. Relax and get enough rest. Check with your healthcare provider before taking any pain medicines. Second trimester tips Here are some suggestions to help you cope: To limit ankle swelling, sit with your feet raised or wear support hose. If you have pain in your groin and stomach(round ligament pain), avoid sudden twisting movements. For leg cramps, flexing your foot often brings immediate relief. You also may try massaging your calf in long, downward strokes, or stretching your legs before going to bed. Get enough exercise and wear shoes with flexible soles. Third trimester tips Reducing heartburn Eat small, light meals throughout the day rather than 3 large ones. Sleep with your upper body raised 6 inches. Dont lie down until 2 hours after you eat. Don't eat greasy, fried, or spicy foods. Avoid citrus fruits and juices. Treating constipation Eat foods high in fiber (whole-grain foods, fresh fruit and vegetables). Drink plenty of water. Get regular exercise. Discuss other medicines (like docusate and psyllium) with your healthcare provider. Taking care of your breasts Avoid using harsh soaps or alcohol, which can cause excessive dryness. Wear nursing bras. They provide more support than regular bras and can be used after ifyou breastfeed. Getting a good nights sleep Take a warm shower before bed. Sleep on a firm mattress. Lie on your side with 1 leg crossed over the other. Use pillows to support arms, legs, and belly. Date Last Reviewed: 03/11/201719990465-2420 [employer]. [address] [place] [address], [place] [address]. All rights reserved. This information is not intended as a substitute for professional medical care. Always follow your healthcare professional's instructions. : Your Third Trimester Changes As the baby grows, your body changes too. You may also see signs that your body is getting ready forlabor. Be patient. Within a few more weeks, your baby will be born. How you are changing Your body is preparing for the of your baby. Some of the most common changes are listed below.If you have any questions or concerns, ask your healthcare provider: Youll gain more weight from fluids, extra blood, and fat deposits. Your breasts will grow as your body gets ready to feed the baby. They may be more tender. You mayalso notice a slight yellow or white discharge from the nipples. Discharge from your vagina may increase. This is normal. You might see some skin color changes on your forehead, cheeks, or nose. Most of these will go away after you deliver. How your baby is growing Month 7 Your babycan open and close his or her eyes andweighs around 4 pounds.If born prematurely (tooearly), your baby would likely survive with special care. Month 8 Your baby is building up body fat andweighs around 6 pounds. Month 9 Your baby weighs nearly 7 pounds and is about 19 to 21 inches long. In other words, any day now... Date Last Reviewed: 07/12/201719998866-1382 [employer]. [address] [place] [id number]. All rights reserved. This information is not intended as a substitute for professional medical care. Always follow your healthcare professional's instructions. Understanding Anxiety Disorders Almost everyone gets nervous now and then. Its normal to have knots in your stomach before a test, or for your heart to race on a first date. But an anxiety disorder is much more than a case of nerves. In fact, its symptoms may be overwhelming. But treatment can relieve many of these symptoms. Talking to your healthcare provider is the first step. What are anxiety disorders? An anxiety disorder causes intense feelings of panic and fear. These feelings may arise for no apparent reason. And they tend to recur again and again. They may prevent you from coping with life and cause you great distress. As a result , you may avoid anything that triggers your fear. In extreme cases, you may never leave the house. Anxiety disorders may cause other symptoms, such as: Obsessive thoughts you cant control Constant nightmares or painful thoughts of the past Nausea, sweating, and muscle tension Trouble sleeping or concentrating What causes anxiety disorders? Anxiety disorders tend to run in families. For some people, childhood abuse or neglect may play a role. For others, stressful life events or trauma may trigger anxiety disorders. Anxiety can trigger low self-esteem and poor coping skills. Common anxiety disorders Panic disorder. This causes an intense fear of being in danger. Phobias. These are extreme fears of certain objects, places, or events. Obsessive-compulsive disorder. This causes you to have unwanted thoughts and urges. You also may perform certain actions over and over. Posttraumatic stress disorder. This occurs in people who have survived a terrible ordeal. It can cause nightmares and flashbacks about the event. Generalized anxiety disorder. This causes constant worry that can greatly disrupt your life. Getting better You may believe that nothing can help you. Or, you might fear what others may think. But most anxiety symptoms can be eased. Having an anxiety disorder is nothing to be ashamed of. Most people do best with treatment that combines medicine and therapy. These arent cures. But they can help you live ahealthier life. Date Last Reviewed: 07/12/201619991879-4[address] [employer]. [address] [place] [address], [place] [address]. All rights reserved. This information is not intended as a substitute for professional medical care. Always follow your healthcare professional's instructions. Depression Depression is one of the most common mental health problems today. It is not just a state of unhappiness or sadness. It is a true disease. The cause seems to be related to a decrease in chemicals that transmit signals in the brain. Having a family history of depression, alcoholism, or suicide increases the risk. Chronic illness, chronic pain, migraine headaches, and high emotional stress also increase the risk. Depression is something we tend to recognize in others, but may have a hard time seeing in ourselves. It can show in many physical and emotional ways: Loss of appetite Overeating Not being able to sleep Sleeping too much Tiredness not related to physical exertion Restlessness or irritability Slowness of movement or speech Feeling depressed or withdrawn Loss of interest in things you once enjoyed Troubleconcentrating, poor memory,trouble making decisions Thoughts of harming or killing oneself, or thoughts that life is not worth living Low self-esteem The treatment for depression may include both medicine and psychotherapy. Antidepressants can reducesuffering and can improve the ability to function during the depressed period. Therapy can offer emotional support and help you understand emotional factors that may be causing the depression. Home care Ongoing care and support help people manage this disease. Find a healthcare provider and therapist who meet your needs. Seek help when you feel like you may be getting ill. Be kind to yourself. Make it a point to do things that you enjoy (gardening, walking in nature, going to a movie). Reward yourself for small successes. Take care of your physical body. Eat a balanced diet (low in saturated fat and high in fruits andvegetables). Exercise at least 3 times a week for 30 minutes. Even mild-moderate exercise (like brisk walking) can make you feel better. Don't drink alcohol, which can make depression worse. Take medicine as prescribed. Tell each of your healthcare providers about all of the prescription and over -the-counter medicines, vitamins, and supplements you take.Certain supplements interact with medicines and can result in dangerous side effects. Ask your pharmacist when you have questions about medicine interactions. Talk with your family andtrusted friendsabout your feelings and thoughts.Ask them to help you recognize behavior changes early so you can get help and, if needed, medicine can be adjusted. Follow-up care Follow up with your healthcare provider, or as advised. Call 911 Call 911 if you: Have suicidal thoughts, a suicide plan, and the means to carry out the plan; or serious thoughts of hurting someone else Have trouble breathing Arevery confused Feel very drowsy or havetrouble awakening Faint or lose consciousness Have new chest pain that becomes more severe, lasts longer, or spreads into your shoulder, arm, neck, jaw, or back When to seek medical advice Call your healthcare provider right away if any of these happen: Feeling extreme depression, fear, anxiety, or anger toward yourself or others Feeling out of control Feeling that you may try to harm yourself or another Hearing voices that others do not hear Seeing things that others do not see Cant sleep or eat for 3 days in a row Friends or family express concern over your behavior and ask you to seek help Date Last Reviewed: 03/11/201719990668-6958 [employer]. [address] [place] [address], [place] [address]. All rights reserved. This information is not intended as a substitute for professional medical care. Always follow your healthcare professional's instructions. Depression Affects Your Mind and Body Everyone feels sad or blue from time to time for a few days or weeks. Depression is when these feelings don't go away and they interfere with daily life. Depression is a real illness that can develop at any age. It is one of the most common mental health problems in the [place] Depression makes you feel sad , helpless, and hopeless. It gets in the way of your life and relationships. It inhibits your ability to think and act. But, with help, you can feel better again. Depression affects your whole body Brain chemicals affect your body as well as your mood. So depression may do more than just make you feel low. You may also feel bad physically. Depression can: Cause trouble with mental tasks such as remembering, concentrating, or making decisions Make you feel nervous and jumpy Cause trouble sleeping. Or you may sleep too much Change your appetite Cause headaches, stomachaches, or other aches and pains Drain your body of energy Depression and other illness It is common for people who have chronic health problems to also have depression. It can often be hard to tell which one caused the other. A person might become depressed after finding out they have a health problem. But some studies suggest being depressed may make certain health problems more likely. And some depressed people stop taking care of themselves. This may make them more likely to get sick. Date Last Reviewed: 06/11/201619994608-4385 [employer]. [address] [place] [address]. All rights reserved. This information is not intended as a substitute for professional medical care. Always follow your healthcare professional's instructions. Depression: Tips to Help Yourself As your healthcare providers help treat your depression, you can also help yourself. Keep in mind that your illness affects you emotionally, physically, mentally, and socially. So full recovery will take time. Take care of your body and your soul, and be patient with yourself as you get better. Self-care Educate yourself. Read about treatment and medicine options. If you have the energy, attend localconferences or support groups. Keep a list of useful websites and helpful books and use them as needed. This illness is not your fault. Dont blame yourself for your depression. Manage early symptoms. If you notice symptoms returning, experience triggers , or identify other factors that may lead to a depressive episode, get help as soon as possible. Ask trusted friends and family to monitor your behavior and let you know if they see anything of concern. Work with your provider. Find a provider you can trust. Communicate honestly with that person andshare information on your treatment for depression and your reaction to medicines. Be prepared for a crisis. Know what to do if you experience a crisis. Keep the phone number of a crisis hotline and know the location of your community's urgent care centers and the closest emergency department. Hold off on big decisions. Depression can cloud your judgment. So wait until you feel better before making major life decisions, such as changing jobs, moving, or getting or . Be patient. Recovering from depression is a process. Dont be discouraged if it takes some timeto feel better. Keep it simple. Depression saps your energy and concentration. So you won t be able to do all the things you used to do. Set small goals and do what you can. Be with others. Dont isolate yourselfyoull only feel worse. Try to be with other people.And take part in fun activities when you can. Go to a movie , ballgame, hoahaoism service, or social event. Talk openly with people you can trust. And accept help when its offered. Take care of your body People with depression often lose the desire to take care of themselves. That only makes their problems worse. During treatment and afterward, make a point to : Exercise. Its a great way to take care of your body. And studies have shown that exercise helps fight depression. Avoid drugs and alcohol. These may ease the pain in the short term. But they ll only make your problems worse in the long run. Get relief from stress. Ask your healthcare provider for relaxation exercises and techniques to help relieve stress. Eat right. A balanced and healthy diet helps keep your body healthy. Date Last Reviewed: 06/11/201619999918-0801 [employer]. [address] [place] [address], [place] [address]. All rights reserved. This information is not intended as a substitute for professional medical care. Always follow your healthcare professional's instructions. documented in this encounter Progress Notes Wendy Maddox MD - 01/02/2019 11:00 AM CDT Chief complaint: Chief Complaint Patient presents with ROUTINE VISIT Anxiety Depression HPI Hellen Jacqueline Soni Leyva is a 23 year old female @ 32w2d here for routine visit. Reports that her anxiety and depression are worse and it is causing her to have nausea and vomiting. She feels so anxious and it makes her nauseous and vomited. Denies contractions, vaginal bleeding, LOF, dysuria, or PIH symptoms. + active FM. Histories OB History Para Term AB Living 3 2 2 2 SAB TAB Ectopic Multiple Live Births 2 # Outcome Date GA Lbr Cm/2nd Weight Sex Delivery Anes PTL Lv 3 Current 2 Term 03/10/14 VAGINAL TENA 1 Term 05/29/12 VAGINAL TENA Past Medical History: Diagnosis Date Anxiety Depression Genital herpes 2016 Family History Family history unknown: Yes Family Status Relation Name Status Mo Alive Past Surgical History: Procedure Laterality Date OTHER Tubes in ear Social History Socioeconomic History Marital status: Spouse name: Not on file Number of children: Not on file Years of education: Not on file Highest education level: Not on file Occupational History Not on file Social Needs Financial resource strain: Not on file Food insecurity: Worry: Not on file Inability: Not on file Transportation needs: Medical: Not on file Non-medical: Not on file Tobacco Use Smoking status: Never Smoker Smokeless tobacco: Never Used Substance and Sexual Activity Alcohol use: No Comment: not currently Drug use: No Sexual activity: Yes Partners: Male control/protection: None Lifestyle Physical activity: Days per week: Not on file Minutes per session: Not on file Stress: Not on file Relationships Social connections: Talks on phone: Not on file Gets together: Not on file Attends hoahaoism service: Not on file Active member of club or organization: Not on file Attends meetings of clubs or organizations: Not on file Relationship status: Not on file Intimate partner violence: Fear of current or ex partner: Not on file Emotionally abused: Not on file Physically abused: Not on file Forced sexual activity: Not on file Other Topics Concern Not on file Social History Narrative Pt denies physical and sexual abuse. Social History Substance and Sexual Activity Sexual Activity Yes Partners: Male control/protection: None Labs No new labs Radiology No new radiology. Allergies Hellen has No Known Allergies. Medications Hellen has a current medication list which includes the following prescription (s): hydroxyzine, sertraline, and vit calc,iron,folic. Review of Systems Constitutional: Negative for chills, fatigue and fever. HENT: Negative for congestion, rhinorrhea, sneezing and sore throat. Eyes: Negative for photophobia and visual disturbance. Respiratory: Negative for cough, chest tightness, shortness of breath and wheezing. Cardiovascular: Negative for chest pain and palpitations. Gastrointestinal: Negative for abdominal distention, abdominal pain, constipation, diarrhea, nausea and vomiting. Genitourinary: Negative for dysuria, urgency, frequency, vaginal bleeding and vaginal discharge. Skin: Negative for rash. Neurological: Negative for syncope and headaches. Hematological: Does not bruise/bleed easily. BP 98/58 (BP Location: Left arm, Patient Position: Sitting, BP CUFF SIZE: Adult Medium) | Pulse 70| Temp 36.6 C (97.8 F) (Oral) | Resp 18 | Ht 5' 8" ( 1.727 m) | Wt 160 lb (72.6 kg) | LMP 05/21/2018 (Exact Date) | BMI 24.33 kg/ m Pregravid BMI: 20.8 Physical Exam Vitals reviewed. Constitutional: She is oriented to person, place, and time. Her body habitus is normal. Cardiovascular: Regular rate and rhythm. Pulmonary/Chest: Normal inspiratory effort. Abdominal: Abdomen is soft. No tenderness present. No hernia palpated or inspected. Neuro/Psychiatric: She has a normal mood and affect. She is oriented to person, place, and time. Skin: Skin normal. No rash present. Assessment/Plan See OB Summary Return to clinic in 2 weeks. Reviewed patient instructions and provided printed copy. Activity restrictions: As tolerated at 32w2d This visit did not involve counseling and coordination that comprised more than 50% of the visit time. Wendy Maddox MD 01/02/2019 5:35 PM documented in this encounter Plan of Treatment Date Type Specialty Care Team Description 01/16/2019 Routine Obstetrics & Wendy Maddox MD Visit Gynecology [address] [place] [address] [place] [address] Health Maintenance Due Date Last Done Comments HPV VACCINES (1 - Female 3-dose 2008 series) INFLUENZA VACCINE 02/09/2019 PAP SMEAR 07/23/2021 07/23/2018 DTaP,Tdap,and Td Vaccines (2 - Td) 12/19/2028 12/19/2018 PNEUMOCOCCAL 0-64 YEARS COMBINED Aged Out No longer eligible based on SERIES patient's age to complete this topic documented as of this encounter Results Not on filedocumented in this encounter Visit Diagnoses Diagnosis Supervision of high risk in third trimester - Primary Unspecified high-risk 32 weeks gestation of state, incidental At risk for increased anxiety Depression affecting in third trimester, antepartum Moderate episode of recurrent major depressive disorder Anxiety disorder, unspecified type documented in this encounter Insurance Payer Benefit Plan / Subscriber ID Effective Phone Address Type Group Dates [employer] 2018-[address] [place] [id number] [place] [address] documented as of this encounter
[2019-01-07] MEDS ORDERED: NA CHLORIDE 0.9% 1,000 ML ONE (10:30)
[2019-01-07 10:34] LABS: Absolute Lymphocytes (CBC) 1.3 K/uL (0.7-4.9); Basophils % 0.6 % (0-1.3); Lymphocytes % 13.5 % (15.3-44.8); MPV 8.8 fL (7.6-11.3); RBC Red Blood Cell Count 3.19 M/uL (3.86-4.86)
[2019-01-07 10:45] LABS: BUN Blood Urea Nitrogen 7 mg/dL (7-18); Bicarbonate 26 mmol/L (21-32); Glucose Level 77 mg/dL (74-106); Potassium 3.6 mmol/L (3.5-5.1); Sodium Level 138 mmol/L (136-145)
--- NOTE | 2019-01-07 11:27 | RAD REPORT ---
EXAM DESCRIPTION: US - OB Limited - 01/07/2019 11:10 am CLINICAL HISTORY: , maternal syncope COMPARISON: Ob ultrasound June 2018 FINDINGS: Limited OB ultrasound was requested evaluate heart tones, amniotic fluid volume plac enta. Normal cardiac activity seen. Rate is 151 BPM. ABIMBOLA is 9.35 cm (7.40-27.40 cm normal range). Grade 1 p osterior placenta is seen with no previa, abruption or marginal hematoma. No other significant or carlos enrique picious findings on this limited study. IMPRESSION: Normal heart rate. Normal ABIMBOLA. No placenta abnormality.
[2019-01-07 13:27] LABS: Urine Blood NEGATIVE (NEG); Urine Glucose NEGATIVE (NEG); Urine Protein NEGATIVE (NEG)
--- NOTE | 2019-01-07 13:34 | EKG ---
Test Date: 2019-01-07 Test Time: 10:25:30 Circular Shear Operator: DAMON MEASUREMENT RESULTS: Intervals: Rate: 68 ID: [id number] QRSD: 98 QT: 424 QTc: 450 [place]: P: 70 ID: [id number] QRS: 93 T: 54 INTERPRETIVE STATEMENTS: Normal sinus rhythm Rightward axis Incomplete right bundle branch block Borderline ECG Compared to ECG 10/01/2018 22:15:45 Right-axis deviation now present Electronically Signed On 01-07-19 13:33:56 CDT by Dakotah Nash
[2019-01-07 14:08] LABS: Urine Bacteria <20 /HPF (<20); Urine RBC NONE SEEN /HPF (NONE SEEN)
[2019-01-07 14:09] LABS: Urine Amorphous Sediment 2+ /HPF (NONE SEEN); Urine Culture Reflex Order NOT NEEDED
--- NOTE | 2019-01-07 14:17 | EDPHYS ---
Physician Documentation [facility] Name: Hellen Leyva Age: 23 yrs Sex: Female : 1995 Arrival Date: 01/07/2019 Time: 10:01 Bed 8 Private MD: ED Physician Yaya Martin HPI: 01/07 10:13 This 23 yrs old Female presents to ER via EMS with complaints of Nausea, rn syncope. 10:13 The patient has experienced syncope. Onset: The symptoms/episode began/occurred just rn prior to arrival. Duration: This was a single episode. Associated injury: The patient did not suffer any apparent associated injury. Current symptoms: generalized weakness. The patient has not experienced similar symptoms in the past. Reports was seated, felt lightheaded, passed out once as she remembers, no seizure activity, no trauma, reports has felt really nauseous lately compared to early symptoms, decreased PO intake for days, generalized weakness. No fever, + vomiting, no diarrhea. Denies focal abd pain. No vaginal bleeding or leakage of fluid. No urinary symptoms.. THERAPIST PHYSICAL: 10:18 LMP 05/11/2018 tw2 Historical: - Allergies: 10:06 No Known Allergies; tw2 - Home Meds: 10:06 Vitamin Oral [Active]; hydroxyzine HCl 25 mg Oral tab 1 tab one time a day tw2 [Active]; sertraline 50 mg oral tab 1 tab once daily [Active]; acyclovir 400 mg Oral tab 1 tab every 8 hours [Active]; - PMHx: 10:21 None; tw2 - PSHx: 10:06 None; tw2 - Immunization history:: Adult Immunizations. - Social history:: Smoking status: . - Ebola Screening: : Patient denies travel to an Ebola-affected area in the 21 days before illness onset. - Family history:: not pertinent. - Hospitalizations: : No recent hospitalization is reported. ROS: 10:13 Constitutional: Negative for fever, chills, and weight loss, Eyes: Negative for injury, rn pain, redness, and discharge, ENT: Negative for injury, pain, and discharge, Neck: Negative for injury, pain, and swelling, Cardiovascular: Negative for chest pain, and edema, + palpitations Respiratory: Negative for shortness of breath, cough, wheezing, and pleuritic chest pain, Abdomen/GI: Negative for abdominal pain,diarrhea, and constipation, Back: Negative for injury and pain, : Negative for injury, bleeding, discharge, and swelling, MS/Extremity: Negative for injury and deformity, Skin: Negative for injury, rash, and discoloration, Neuro: Negative for headache, numbness, tingling, and seizure. Exam: 10:13 Constitutional: This is a well developed, well nourished patient who is awake, alert, rn laying in bed, no acute distress Head/Face: Normocephalic, atraumatic. Eyes: Pupils equal round and reactive to light, extra-ocular motions intact. Lids and lashes normal. Conjunctiva and sclera are non-icteric and not injected. Cornea within normal limits. Periorbital areas with no swelling, redness, or edema. ENT: MMM Neck: Trachea midline, no thyromegaly or masses palpated, and no cervical lymphadenopathy. Supple, full range of motion without nuchal rigidity, or vertebral point tenderness. No Meningismus. Cardiovascular: Regular rate and rhythm, no murmur. No pulse deficits. Respiratory: Lungs have equal breath sounds bilaterally, clear to auscultation. No increased work of breathing, no retractions or nasal flaring. Abdomen/GI: soft, + gravid uterus, + movements, non-tender, no rebound MS/ Extremity: Pulses equal, no cyanosis. Neurovascular intact. Full, normal range of motion. Equal circumference. Neuro: Awake and alert, GCS 15, oriented to person, place, time, and situation. Cranial nerves II-XII grossly intact. Motor strength 5/5 in all extremities. Sensory grossly intact. Cerebellar exam normal. Vital Signs: 10:04 BP 109 / 61; Pulse 70; Resp 17; Pulse Ox 97% on R/A; Pain 0/10; tw2 10:18 Temp 98.0(O); tw2 10:42 BP 120 / 81; Pulse 79; Resp 17; Pulse Ox 99% on R/A; tw2 11:38 BP 103 / 74; Pulse 71; Resp 17; Pulse Ox 99% on R/A; tw2 13:01 BP 107 / 68; Pulse 77; Resp 17; Pulse Ox 97% on R/A; tw2 14:05 BP 110 / 62; Pulse 72; Resp 17; Pulse Ox 100% on R/A; sg MDM: 10:01 Patient medically screened. rn 10:13 ED course: Reports has been feeling bad for 5 days or so but didn't pass out until rn today.. 11:29 ED course: Normal vitals, improved with fluids, u/s baby normal. Waiting on UA. . rn 11:41 ED course: Pt feeling much better, requesting to eat, states "starving". . rn 14:13 Differential Diagnosis: idiopathic syncope, vasovagal episode, dehydration, UTI, programming internship etiology, cardiac arrhythmia. Data reviewed: vital signs, nurses notes, lab test result(s), EKG, radiologic studies, ultrasound, and as a result, I will discharge patient. Counseling: I had a detailed discussion with the patient and/or guardian regarding: the historical points, exam findings, and any diagnostic results supporting the discharge/admit diagnosis, lab results, radiology results, the need for outpatient follow up, to return to the emergency department if symptoms worsen or persist or if there are any questions or concerns that arise at home. Response to treatment: the patient's symptoms have resolved after treatment, the patient's condition has returned to base line, the patient is now symptom free, patient is well hydrated. and as a result, I will discharge patient. Special discussion: I discussed with the patient/guardian in detail that at this point there is no indication for admission to the hospital. It is understood, however, that if the symptoms persist or worsen the patient needs to return immediately for re-evaluation. Based on the history and exam findings, there is no indication for further emergent testing or inpatient evaluation. I discussed with the patient/guardian the need to see the labor relations supervisor for further evaluation of the symptoms. I discussed with the patient/guardian the need to see the OB Gyne specialist for further evaluation of the symptoms. ED course: Urged patient to f/u with cardiology given persistent palpitations and now syncope today, no new findings, ambulatory now to bathroom several times, normal neuro exam, normal vitals, well hydrated, ate meal, will dc home.. 01/07 10: Order name: CBC with Diff; Complete Time: 10: rn 01/07 10: Order name: Basic Metabolic Panel; Complete Time: 10: rn 01/07 10: Order name: Urine Microscopic Only; Complete Time: 14:13 rn 01/07 10:10 Order name: US OB Limited; Complete Time: 11:30 rn 01/07 13:00 Order name: Urine Dipstick--Ancillary (enter results); Complete Time: 13:47 bd 01/07 10:09 Order name: IV Start; Complete Time: 10:11 rn 01/07 10:09 Order name: Urine Dipstick-Ancillary (obtain specimen); Complete Time: 13:00 rn 01/07 10:09 Order name: EKG; Complete Time: 10:12 rn 01/07 10:09 Order name: EKG - Nurse/Tech; Complete Time: 10:18 rn Administered Medications: 10:18 Drug: NS 0.9% 1000 ml Route: IV; Rate: 1000 ml; Site: right antecubital; tw2 Disposition: 01/07/19 14:16 Discharged to Home. Impression: Syncope and collapse. - Condition is Stable. - Discharge Instructions: Syncope. - Medication Reconciliation Form, Thank You Letter, Antibiotic Education, Prescription Opioid Use form. - Follow up: Private Physician; When: As needed; Reason: Recheck today's complaints, Re-evaluation by your physician. - Problem is new. - Symptoms have improved. Signatures: Dispatcher [employer] EDMS Wilian Mcguire RN RN sg Yaya Martin MD MD rn Wise, Tara, RN RN tw2 Corrections: (The following items were deleted from the chart) 14:25 14:16 01/07/2019 14:16 Discharged to Home. Impression: Syncope and collapse. Condition sg is Stable. Forms are Medication Reconciliation Form, Thank You Letter, Antibiotic Education, Prescription Opioid Use. Follow up: Private Physician; When: As needed; Reason: Recheck today's complaints, Re-evaluation by your physician. Problem is new. Symptoms have improved. rn
--- NOTE | 2019-01-07 14:17 | ER ---
Nurse's Notes [facility] Name: Hellen Leyva Age: 23 yrs Sex: Female : 1995 Arrival Date: 01/07/2019 Time: 10:01 Bed 8 Private MD: Diagnosis: Syncope and collapse Presentation: 01/07 10:01 Presenting complaint: EMS states: pt was [facility]/o nausea for the past 1 hr, had 2 tw2 syncopal episodes, when we arrived she was a little disoriented, i gave 500 ns bolus given, pt was alert and oriented after the bolus, has had 750 ml NS at this time, bgl 88, lips pale, nail beds white, no abdominal pain, no vaginal bleeding. Transition of care: patient was not received from another setting of care. Onset of symptoms was January 07, 2019. Risk Assessment: Do you want to hurt yourself or someone else? Patient reports no desire to harm self or others. Initial Sepsis Screen: Does the patient meet any 2 criteria? No. Patient's initial sepsis screen is negative. Does the patient have a suspected source of infection? No. Patient's initial sepsis screen is negative. Care prior to arrival: None. 10:01 Method Of Arrival: EMS: [facility] tw2 10:01 Acuity: LENORE 2 tw2 CYLINDER WORKER: 10:18 LMP 05/11/2018 tw2 Historical: - Allergies: 10:06 No Known Allergies; tw2 - Home Meds: 10:06 Vitamin Oral [Active]; hydroxyzine HCl 25 mg Oral tab 1 tab one time a day tw2 [Active]; sertraline 50 mg oral tab 1 tab once daily [Active]; acyclovir 400 mg Oral tab 1 tab every 8 hours [Active]; - PMHx: 10:21 None; tw2 - PSHx: 10:06 None; tw2 - Immunization history:: Adult Immunizations. - Social history:: Smoking status: . - Ebola Screening: : Patient denies travel to an Ebola-affected area in the 21 days before illness onset. - Family history:: not pertinent. - Hospitalizations: : No recent hospitalization is reported. Screenin:06 Abuse screen: Denies threats or abuse. Nutritional screening: No deficits noted. tw2 Tuberculosis screening: No symptoms or risk factors identified. Fall Risk Secondary diagnosis (15 points) impaired mobility. Assessment: 10:18 General: Appears in no apparent distress. well groomed, Behavior is calm, cooperative, tw2 appropriate for age. Pain: Denies pain. Neuro: Level of Consciousness is awake, alert, obeys commands, Oriented to person, place, time, situation. Cardiovascular: Heart tones S1 S2 Patient's skin is warm and dry. Respiratory: Airway is patent Respiratory effort is even, unlabored, Respiratory pattern is regular, symmetrical, Breath sounds are clear bilaterally. GI: Abdomen is round pt is Bowel sounds present X 4 quads. Reports nausea. : No signs and/or symptoms were reported regarding the genitourinary system. EENT: No signs and/or symptoms were reported regarding the EENT system. Derm: Skin is pale. Musculoskeletal: Capillary refill is > 3 seconds, Range of motion: intact in all extremities. 10:42 Reassessment: Patient appears in no apparent distress at this time. No changes from tw2 previously documented assessment. Patient and/or family updated on plan of care and expected duration. Pain level reassessed. 11:40 Reassessment: Patient appears in no apparent distress at this time. No changes from tw2 previously documented assessment. Patient and/or family updated on plan of care and expected duration. Pain level reassessed. Patient is alert, oriented x 3, equal unlabored respirations, skin warm/dry/pink. pt reporting "i am so hungry", pts friend has food at bedside, provider authorized food consumption at this time. Patient states feeling better. 13:01 Reassessment: Patient appears in no apparent distress at this time. No changes from tw2 previously documented assessment. Patient and/or family updated on plan of care and expected duration. Pain level reassessed. Patient is alert, oriented x 3, equal unlabored respirations, skin warm/dry/pink. Vital Signs: 10:04 BP 109 / 61; Pulse 70; Resp 17; Pulse Ox 97% on R/A; Pain 0/10; tw2 10:18 Temp 98.0(O); tw2 10:42 BP 120 / 81; Pulse 79; Resp 17; Pulse Ox 99% on R/A; tw2 11:38 BP 103 / 74; Pulse 71; Resp 17; Pulse Ox 99% on R/A; tw2 13:01 BP 107 / 68; Pulse 77; Resp 17; Pulse Ox 97% on R/A; tw2 14:05 BP 110 / 62; Pulse 72; Resp 17; Pulse Ox 100% on R/A; ED Course: 10:01 Patient arrived in ED. tw2 10:01 Yaya Martin MD is Attending Physician. rn 10:01 Bed in low position. Call light in reach. society reporter on. Pulse ox on. NIBP on. tw2 10:03 Triage completed. tw2 10:03 Arm band placed on. tw2 10:04 Maintain EMS IV. Dressing intact. Good blood return noted. Site clean \\T\\ dry. Gauge \\T\\ tw 2 site: 18 LEFT ac. 10:06 Camila Villafuerte RN is Primary Nurse. tw2 10:33 EKG done, by surface mount technology operator. reviewed by Yaya Martin MD. sm3 11:13 US OB Limited In Process Unspecified. EDMS 13:54 Report given to ARACELI Santos. tw Administered Medications: 10:18 Drug: NS 0.9% 1000 ml Route: IV; Rate: 1000 ml; Site: right antecubital; tw2 Outcome: 14:16 Discharge ordered by . rn 14:25 Patient left the ED. Signatures: Dispatcher [employer] EDMS Wilian Mcguire RN RN Yaya Martin MD MD rn Wise, Tara, RN RN 2 Blanca Haskins 3
[2019-01-07 14:36] VITALS: TEMP 98
[2019-01-07 14:42] VITALS: BP 110/62; O2SAT 100
== END 2019-01-07 14:25 | disposition home or self-care (01) ==
LOC: ER 09:59
DX: R55 Syncope and collapse (principal)
CPT/HCPCS: 36415; 76815; 80048; 81003; 81015; 85025; 93005; 99284; J7030

== ENCOUNTER 2021-09-09 08:08 | Emergency (ER) | payer OTHER ==
--- OUTSIDE RECORDS SUMMARY | 2021-09-09 08:11 | XMS REPORT | Continuity of Care Document ---
:[address] [facility] t Address [address] [place] [address] Care Team Providers Name Role Phone Pcp, Does Not Have A Primary Care Physician Luis Alberto Attending Clinician Unavailable 2, Lab Attending Clinician Unavailable Jenelle Mo MD Attending Clinician JENELLE MO Attending Clinician Unavailable TY Attending Clinician Unavailable Christiano JJ Attending Clinician TY Admitting Clinician Unavailable Payers Payer Name Policy Type Policy Number Effective Date Expiration Date [place] delacruz [facility] [id number] 2018 [facility] CARE - 00:00:00 STAR (MEDICAID HMO) Problems Condition Condition Condition Status Onset Resolution Last Treating Co mments Source Name Details Category Date Date Treatment Clinician Date No known No known Disease Unive rs active active ity of problems problems [facility] [place] Allergies, Adverse Reactions, Alerts Allergy Allergy Status Severity Reaction(s) Onset Inactive Treating Comm ents Source Name Type Date Date Clinician NO KNOWN Drug Active Univers ALLERGIE Class ity of S [facility] [place] Social History Social Habit Start Date Stop Date Quantity Comments Source Exposure to Not sure University of SARS-CoV-2 [place] [facility] (event) Branch History SDOH University o f Alcohol Frequency [place] [facility] History SDOH University o f Alcohol Std [place] [facility] Drinks Branch History SDOH University o f Alcohol Binge [place] [facility] Branch Alcohol intake 2021-07-06 2021-07-06 Current drinker Unive rsity of 00:00:00 00:00:00 of alcohol [facility] (finding) [place] Alcohol Comment 2019-12-17 2019-12-17 every other Universi ty of 00:00:00 00:00:00 weekend [facility] [place] Tobacco use and 2019-01-02 2019-01-02 Never used Universit y of exposure 00:00:00 00:00:00 [facility] [place] Sex Ass[birth year] At [birth year] Universit y of 00:00:00 00:00:00 [facility] [place] Smoking Status Start Date Stop Date Source Former smoker 2019-01-02 00:00:00 2019-01-02 00:00:00 Universi ty of [facility] [place] Medications Ordered Filled Start Stop Current Ordering Indication Dosage Frequency Signature Comments Components Source Medication Medication Date Date Medication? Clinician (SIG) Name Name fluconazole 2021- Yes [id number] 150mg Take 1 Univers 150 mg -28 -29 tablet by ity of tablet 00:00: 05:59 [place] 1 Medical dose. Branch fluconazole 2021- Yes [id number] 150mg Take 1 Univers 150 mg 1-28 -29 tablet by ity of tablet 00:00: 05:59 [place] now for 1 Medical dose. Branch estradioL 1 Yes [id number] 1mg Take 1 Univers mg tablet 1-26 tablet by ity o f 00:00: mouth [place] 00 daily. Medical Branch estradioL 1 Yes [id number] 1mg Take 1 Univers mg tablet 1-26 tablet by ity o f 00:00: mouth [place] 00 daily. Medical Branch estradioL 1 Yes [id number] 1mg Take 1 Univers mg tablet 1-26 tablet by ity o f 00:00: mouth [place] 00 daily. Medical Branch TINIDAZOLE Yes Take by Uni vers ORAL 7-08 mouth. ity of :: Medical Branch TINIDAZOLE Yes Take by Uni vers ORAL 7-08 mouth. ity of :: Medical Branch TINIDAZOLE Yes Take by Uni vers ORAL 7-08 mouth. ity of :05: [facility] Immunizations Ordered Filled Immunization Date Status Comments Sourc e Immunization Name Name MMR 2019-02-19 Completed University 00:00:00 [facility] [place] MMR 2019-02-19 Completed University 00:00:00 [facility] [place] MMR 2019-02-19 Completed University 00:00:00 [facility] [place] TDAP (ADACEL) 2018-12-19 Completed University of VACCINE 00:00:00 [facility] [place] TDAP (ADACEL) 2018-12-19 Completed University of VACCINE 00:00:00 [facility] [place] TDAP (ADACEL) 2018-12-19 Completed [place] of VACCINE 00:00:00 [facility] [place] Vital Signs Vital Name Observation Time Observation Value Comments Source Systolic blood 2021-07-06 20:23:00 116 mm[Hg] Univer sity of pressure [facility] [place] Diastolic blood 2021-07-06 20:23:00 75 mm[Hg] Unive rsity of [facility] Heart rate 2021-07-06 20:23:00 72 /min [facility] Body temperature 2021-07-06 20:23:00 37.11 [facility] Res[facility] rate 2021-07-06 20:23:00 18 /min [facility] Body height 2021-07-06 20:23:00 172.7 cm [facility] Body weight 2021-07-06 20:23:00 68.04 kg [facility] BMI 2021-07-06 20:23:00 22.81 kg/m2 [facility] Procedures This patient has no known procedures. Encounters Start End Encounter Admission Attending Care Care Encounter Source Date/Time Date/Time Type Type Clinicians Facility Department ID 2021-09-07 Outpatient Luis Alberto, STLMLC [facility] [id number] 13:26:07 Sandie [id number] [facility] 2021-09-07 2021-09-07 amb[facility] [id number] 2021-07-08 2021-07-08 Human Resources Technician 2, Adc Lab [facility] [id number] [facility] 16:00:00 16:17:13 Visit Devonte Mo [id number] ity of [facility] [id number] [id number] De dical NAL [address] Branch [facility] 2021-07-08 2021-07-08 Outpatient R [facility] [id number] Univers 16:00:00 16:00:00 [id number] ity of [facility] [place] 2021-07-08 2021-07-08 Outpatient R DEVONTE MO [facility] [id number] Univers 16:00:00 16:00:00 ity of [facility] [place] 2021-07-08 2021-07-08 Case Tan [facility] [id number] [facility] 00:00:00 00:00:00 Management Jenelle LUNDBERG [id number] ity of [id number] [id number] [facility] [address] Branch 2021-07-07 2021-07-07 Outpatient DICLEMENTE_ [facility] [id number] [place] 09:57:00 09:57:00 [facility] 2021-07-06 2021-07-06 Office eDvonte Mo [facility] [id number] [facility] 14:00:00 14:37:05 Visit Barb Alvarado [id number] ity of [facility] [id number] [phone] De dical NAL 134 [facility] Results This patient has no known results.
[2021-09-09] MEDS ORDERED: METHYLPREDNISOLONE 125 MG INJ ONE (08:43)
[2021-09-09] MEDS ORDERED: NA CHLORIDE 0.9% 1,000 ML ONE (08:43)
[2021-09-09] MEDS ORDERED: FAMOTIDINE 20 MG/2 ML VIAL IV ONE (08:43)
--- NOTE | 2021-09-09 09:26 | EDPHYS ---
Physician Documentation [facility] Name: Hellen Leyva Age: 25 yrs Sex: Female : 1995 Arrival Date: 09/09/2021 Time: 08:11 Bed 20 Private MD: ED Physician Yaya Martin HPI: 09/09 08:48 This 25 yrs old Female presents to ER via Ambulatory with complaints of Facial kb Swelling, Allergic Reaction. 08:48 The patient presents with itching, localized swelling, redness of skin. Onset: The kb symptoms/episode began/occurred last night. Associated signs and symptoms: Pertinent positives: swelling. Possible causes: At home the patient or guardian has treated the symptoms with Benadryl. Severity of symptoms: At their worst the symptoms were mild moderate in the emergency department the symptoms are unchanged. The patient has not experienced similar symptoms in the past. The patient has not recently seen a physician. Pt states she made some pulled pork last night and developed redness, swelling and itching to face and neck after eating. States she is not sure what caused the reaction, nothing that she cooked with was new to her. States she took some benadryl last night and again this around 0200, but the symptoms persist. . 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 - Social history:: Smoking status: Patient denies any tobacco usage or history of. ROS: 08:47 Constitutional: Negative for fever, chills, and weight loss. kb 08:47 Skin: Positive for erythema, swelling, of the face and neck. 08:47 All other systems are negative. Exam: 08:47 Constitutional: This is a well developed, well nourished patient who is awake, alert, kb and in no acute distress. Head/Face: Normocephalic, atraumatic. Eyes: Pupils equal round and reactive to light, extra-ocular motions intact. Lids and lashes normal. Conjunctiva and sclera are non-icteric and not injected. Cornea within normal limits. Periorbital areas with no swelling, redness, or edema. ENT: Moist Mucous membranes Respiratory: Respirations even and unlabored. No increased work of breathing. Talking in full sentences MS/ Extremity: Pulses equal, no cyanosis. Neurovascular intact. Full, normal range of motion. Neuro: Awake and alert, GCS 15, oriented to person, place, time, and situation. Moves all extremities. Normal gait. Psych: Awake, alert, with orientation to person, place and time. Behavior, mood, and affect are within normal limits. 08:47 Skin: Appearance: normal except for affected area, Color: erythematous, swelling, noted on the face, that are mild, that are moderate. Vital Signs: 08:25 BP 117 / 76; Pulse 81; Resp 18; Temp 98.6; Pulse Ox 100% ; Weight 68.04 kg; Height 5 evangelista ft. 8 in. (172.72 cm); 08:25 Body Mass Index 22.81 (68.04 kg, 172.72 cm) evangelista MDM: 08:15 Patient medically screened. kb 08:45 Data reviewed: vital signs, nurses notes. Data interpreted: Pulse oximetry: on room air kb is 100 %. Interpretation: normal. 09:24 Counseling: I had a detailed discussion with the patient and/or guardian regarding: the kb historical points, exam findings, and any diagnostic results supporting the discharge/admit diagnosis, the need for outpatient follow up, a family practitioner, to return to the emergency department if symptoms worsen or persist or if there are any questions or concerns that arise at home. 09/09 08:21 Order name: IV Start; Complete Time: 08:48 kb Administered Medications: 08:49 Drug: NS 0.9% 1000 ml Route: IV; Rate: 1000 ml; Site: right antecubital; evangelista 08:49 Drug: SOLU-Medrol (methylPrednisoLONE) 125 mg Route: IVP; Site: right antecubital; evangelista 08:49 Follow up: Response: No adverse reaction evangelsita 08:49 Drug: Pepcid (famotidine) 20 mg Route: IVP; Site: right antecubital; evangelista 08:49 Follow up: Response: No adverse reaction evangelista Disposition: 16:30 Co-signature as Attending Physician, Yaya Martin MD. rn Disposition Summary: 09/09/21 09:25 Discharge Ordered Location: Home kb Condition: Stable kb Diagnosis - Allergy to other foods kb Followup: kb - With: Emergency Department - When: As needed - Reason: Worsening of condition Followup: kb - With: Private Physician - When: 2 - 3 days - Reason: Recheck today's complaints, Continuance of care, Re-evaluation by your physician Discharge Instructions: - Discharge Summary Sheet kb - Food Allergy, Hpau-ll-Mnss kb Forms: - Medication Reconciliation Form kb - Thank You Letter kb - Antibiotic Education kb - Prescription Opioid Use kb Prescriptions: - Pepcid 20 mg Oral Tablet - take 1 tablet by ORAL route every 12 hours for 5 days; 10 tablet; Refills: 0, kb Product Selection Permitted - Prednisone 20 mg Oral Tablet - take 1 tablet by ORAL route once daily for 5 days; 5 tablet; Refills: 0, kb Product Selection Permitted Signatures: Gabriela De La Cruz FNP-C FNP-Ckb Nieto, Roman, MD MD rn Sharita Geronimo RN RN evangelista Corrections: (The following items were deleted from the chart) 08: Home Meds: Vitamin Oral [Inactive]; [facility] 08: Home Meds: hydroxyzine HCl 25 mg Oral tab 1 tab one time a day [Inactive]; [facility] 08: Home Meds: sertraline 50 mg Oral tab 1 tab once daily [Inactive]; [facility] 08: Home Meds: acyclovir 400 mg Oral tab 1 tab every 8 hours [Inactive]; [facility] 08: PMHx: None; [facility]
--- NOTE | 2021-09-09 09:26 | ER ---
Nurse's Notes [facility] Name: Hellen Leyva Age: 25 yrs Sex: Female : 1995 Arrival Date: 09/09/2021 Time: 08:11 Bed 20 Private MD: Diagnosis: Allergy to other foods Presentation: 09/09 08:25 Chief complaint: Patient states: facial swelling. Coronavirus screen: Vaccine status: evangelista Patient reports being unvaccinated. Ebola Screen: Patient denies travel to an Ebola-affected area in the 21 days before illness onset. Onset: The symptoms/episode began/occurred gradually, last night. Anaphylaxis evaluation, no signs or symptoms of anaphylaxis were noted. Initial Sepsis Screen: Does the patient meet any 2 criteria? No. Patient's initial sepsis screen is negative. Does the patient have a suspected source of infection? No. Patient's initial sepsis screen is negative. Risk Assessment: Do you want to hurt yourself or someone else? Patient reports no desire to harm self or others. Onset of symptoms was September 08, 2021. 08:25 Method Of Arrival: Ambulatory evangelista 08:25 Acuity: LENORE 3 evangelista Triage Assessment: 08:28 General: Appears in no apparent distress. General: Behavior is calm, cooperative. Pain: evangelista Complains of pain in right eye, right cheek, left cheek and left eye. 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 - Social history:: Smoking status: Patient denies any tobacco usage or history of. Screenin:31 Abuse screen: Denies threats or abuse. Denies injuries from another. Nutritional evangelista screening: No deficits noted. Tuberculosis screening: No symptoms or risk factors identified. Fall Risk None identified. Assessment: 08:31 Respiratory: Airway is patent Respiratory effort is even, unlabored, Breath sounds are evangelista clear bilaterally. Vital Signs: 08:25 BP 117 / 76; Pulse 81; Resp 18; Temp 98.6; Pulse Ox 100% ; Weight 68.04 kg; Height 5 evangelista ft. 8 in. (172.72 cm); 08:25 Body Mass Index 22.81 (68.04 kg, 172.72 cm) evangelista ED Course: 08:11 Patient arrived in ED. as 08:14 Gabriela De La Cruz FNP-C [facility] kb 08:14 Yaya Martin MD is Attending Physician. kb 08:27 Triage completed. evangelista 08:28 Arm band placed on right wrist. evangelista 08:31 Sharita Geronimo, ARACELI is Primary Nurse. evangelista 08:31 Patient has correct armband on for positive identification. Bed in low position. evangelista 08:31 No provider procedures requiring assistance completed. evangelista 09:51 Inserted saline lock: 20 gauge antecubital area, using aseptic technique. IV evangelista discontinued, intact, Pressure dressing applied. Administered Medications: 08:49 Drug: NS 0.9% 1000 ml Route: IV; Rate: 1000 ml; Site: right antecubital; evangelista 08:49 Drug: SOLU-Medrol (methylPrednisoLONE) 125 mg Route: IVP; Site: right antecubital; evangelista 08:49 Follow up: Response: No adverse reaction evangelista 08:49 Drug: Pepcid (famotidine) 20 mg Route: IVP; Site: right antecubital; evangelista 08:49 Follow up: Response: No adverse reaction evangelista Outcome: 09:25 Discharge ordered by . kb 09:51 Discharged to home evangelista 09:51 Condition: good 09:51 Discharge instructions given to patient, Prescriptions given X 2. 09:51 Patient left the ED. evangelista Signatures: Gabriela De La Cruz FNP-C FNP-Ckb Martinez, Amelia as Sharita Geronimo RN RN evangelista Corrections: (The following items were deleted from the chart) 08: Home Meds: Vitamin Oral [Inactive]; evangelista evangelista 08: Home Meds: hydroxyzine HCl 25 mg Oral tab 1 tab one time a day [Inactive]; evangelista evangelista 08: Home Meds: sertraline 50 mg Oral tab 1 tab once daily [Inactive]; evangelista evangelista 08: Home Meds: acyclovir 400 mg Oral tab 1 tab every 8 hours [Inactive]; evangelista evangelista 08 08: PMHx: None; evangelista evangelista
[2021-09-09 10:07] VITALS: BP 117/76; TEMP 98.6; O2SAT 100
== END 2021-09-09 09:51 | disposition home or self-care (01) ==
LOC: ER 08:08
DX: R22.9 Localized swelling, mass and lump, unspecified (principal); L29.9 Pruritus, unspecified; Z91.018 Allergy to other foods
CPT/HCPCS: 96375; 96374; 99283; J7030; J2930

== ENCOUNTER 2021-09-16 23:57 | Emergency (ER) | payer OTHER ==
--- OUTSIDE RECORDS SUMMARY | 2021-09-16 23:59 | XMS REPORT | Continuity of Care Document ---
:1995 Author Organization [facility] t Address [address] [place] [address] Care Team Providers Name Role Phone Pcp, Does Not Have A Primary Care Physician Luis Alberto Attending Clinician Unavailable 2, Lab Attending Clinician Unavailable Jenelle Mo MD Attending Clinician JENELLE MO Attending Clinician Unavailable TY Attending Clinician Unavailable Christiano JJ Attending Clinician TY Admitting Clinician Unavailable Payers Payer Name Policy Type Policy Number Effective Date Expiration Date [place] delacruz [facility] [id number] 2018 [facility] CARE - 00:00:00 STAR (MEDICAID HMO) Problems Condition Condition Condition Status Onset Resolution Last Treating Co mments Source Name Details Category Date Date Treatment Clinician Date No known No known Disease Unive rs active active ity of problems problems [facility] Allergies, Adverse Reactions, Alerts Allergy Allergy Status Severity Reaction(s) Onset Inactive Treating Comm ents Source Name Type Date Date Clinician NO KNOWN Drug Active Univers ALLERGIE Class ity of S [facility] Social History Social Habit Start Date Stop [...] Unive rsity of 00:00:00 00:00:00 of alcohol [facility] (finding) [place] Alcohol Comment 2019-12-17 2019-12-17 every other Universi ty of 00:00:00 00:00:00 weekend [facility] Tobacco use and 2019-01-02 2019-01-02 Never used Universit y of exposure 00:00:00 00:00:00 [facility] Sex Assigned At [birth year] Universit y of 00:00:00 00:00:00 [facility] Smoking Status Start Date Stop Date Source Former smoker 2019-01-02 00:00:00 2019-01-02 00:00:00 Universi ty of [facility] Medications Ordered Filled Start Stop Current Ordering Indication Dosage Frequency Signature Comments Components Source Medication Medication Date Date Medication? Clinician (SIG) Name Name fluconazole 2021- Yes [id number] 150mg Take 1 Univers 150 mg -28 -29 tablet by ity of tablet 00:00: 05:59 [place] now for 1 Medical dose. Branch fluconazole 2021- Yes [id number] 150mg Take 1 Univers 150 mg 1-28 -29 tablet by ity of tablet 00:00: 05:59 [place] :[place] now for 1 Medical dose. Branch estradioL 1 Yes [id number] 1mg Take 1 Univers mg tablet 1-26 tablet by ity o f 00:00: mouth [place] 00 daily. Medical Branch estradioL 1 Yes [id number] 1mg Take 1 Univers mg tablet 1-26 tablet by ity o f 00:00: mouth [place] 00 daily. Medical Branch estradioL 1 Yes [id number] 1mg Take 1 Univers mg tablet 1-26 tablet by ity o f 00:00: mouth [place] 00 daily. Medical Branch TINIDAZOLE Yes Take by Uni vers ORAL 7-08 mouth. ity of :: Medical Branch TINIDAZOLE Yes Take by Uni vers ORAL 7-08 mouth. ity of :: Medical Branch TINIDAZOLE Yes Take by Uni vers ORAL 7-08 mouth. ity of :05: [facility] Immunizations Ordered Filled Immunization Date Status Comments Sourc e Immunization Name Name MMR 2019-02-19 Completed University 00:00:00 [facility] MMR 2019-02-19 Completed University 00:00:00 [facility] MMR 2019-02-19 Completed University 00:00:00 [facility] TDAP (ADACEL) 2018-12-19 Completed University of VACCINE 00:00:00 [facility] TDAP (ADACEL) 2018-12-19 Completed University of VACCINE 00:00:00 [facility] TDAP (ADACEL) 2018-12-19 Completed [place] of VACCINE 00:00:00 [facility] Vital Signs Vital Name Observation Time Observation Value Comments Source Systolic blood 2021-07-06 20:23:00 116 mm[Hg] Univer sity of pressure [facility] Diastolic blood 2021-07-06 20:23:00 75 mm[Hg] Unive rsity of [facility] Heart rate 2021-07-06 20:23:00 72 /min [facility] Body temperature 2021-07-06 20:23:00 37.11 Arlette [facility] Res[facility] rate 2021-07-06 20:23:00 18 /min [facility] Body height 2021-07-06 20:23:00 172.7 cm [facility] Body weight 2021-07-06 20:23:00 68.04 kg [facility] BMI 2021-07-06 20:23:00 22.81 kg/m2 [facility] Procedures This patient has no known procedures. Encounters Start End Encounter Admission Attending Care Care Encounter Source Date/Time Date/Time Type Type Clinicians Facility Department ID 2021-09-07 Outpatient Luis Alberto, STLMLC [facility] [id number] 13:26:07 Sandie [id number] [facility] 2021-09-07 2021-09-07 [facility] [id number] 2021-07-08 2021-07-08 Retention Representative 2, Adc Lab [facility] [id number] [facility] 16:00:00 16:17:13 Visit Devonte Mo [id number] it[facility] [id number] [id number] Ar dical NAL [address] [facility] 2021-07-08 2021-07-08 Outpatient R [facility] [id number] Univers 16:00:00 16:00:00 [id number] ity of [facility] 2021-07-08 2021-07-08 Outpatient R DEVONTE MO [facility] [id number] Univers 16:00:00 16:00:00 ity of [facility] 2021-07-08 2021-07-08 Case Tan [facility] [id number] [facility] 00:00:00 00:00:00 Management Jenelle LUNDBERG [id number] ity of [place] [id number] [id number] [facility] [address] Branch 2021-07-07 2021-07-07 Outpatient DICLEMENTE_ [facility] [id number] [place] 09:57:00 09:57:00 [facility] 2021-07-06 2021-07-06 Office Devonte Mo [facility] [id number] [facility] 14:00:00 14:37:05 Visit Barb Alvarado [id number] ity of [facility] [id number] [phone] Ar dical NAL 134 [facility] Results This patient has no known results.
[2021-09-17] MEDS ORDERED: LIDOCAINE VISCOUS 2% SOLN 15 ML UDC ONE (00:35)
[2021-09-17] MEDS ORDERED: ONDANSETRON 4 MG/2 ML VIAL ONE (00:35)
[2021-09-17] MEDS ORDERED: FAMOTIDINE 20 MG/2 ML VIAL IV ONE (00:35)
[2021-09-17] MEDS ORDERED: MAGNES/ALUMIN/SIMET 30ML UCUP ONE (00:35)
[2021-09-17 00:43] LABS: Absolute Lymphocytes (CBC) 2.9 K/uL (0.7-4.9); Hematocrit 38.3 % (36.0-45.0); RBC Red Blood Cell Count 4.17 M/uL (3.86-4.86)
[2021-09-17 00:54] LABS: Bilirubin Total 0.2 mg/dL (0.2-1.0); Potassium 3.8 mmol/L (3.5-5.1); Protein, Total 7.2 g/dL (6.4-8.2)
[2021-09-17 01:17] LABS: Urine Blood Negative (Negative); Urine Glucose Negative (Negative); Urine Protein Negative (Negative)
[2021-09-17 02:02] LABS: Urine Bacteria 20-50 /HPF (<20); Urine RBC <5 /HPF (NONE SEEN); Urine Yeast FEW (NONE SEEN)
--- NOTE | 2021-09-17 02:31 | EDPHYS ---
Physician Documentation [facility] Name: Hellen Leyva Age: 25 yrs Sex: Female : 1995 Arrival Date: 09/16/2021 Time: 23:59 Bed 18 Private MD: ED Physician Frankie Fink HPI: 09/17 01:21 This 25 yrs old Female presents to ER via Ambulatory with complaints of Abdominal Pain, ms3 Nausea. 01:21 This 25 yrs old Female presents to ER via Ambulatory with complaints of Abdominal Pain, ms3 Nausea. 01:21 The patient presents to the emergency department with nausea. Onset: The ms3 symptoms/episode began/occurred 1 week(s) ago. Possible causes: unknown. The symptoms are aggravated by nothing. The symptoms are alleviated by nothing. Associated signs and symptoms: Pertinent positives: abdominal pain. 25-year-old female with no past medical history presents for abdominal pain that has been ongoing for 1 week. Patient states the pain is become worse and is currently a 10/10 and described as being sharp located in her upper abdomen. Patient endorses nausea. Patient denies vomiting, fevers, chills. Patient denies alleviating or inciting factors. 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 - Social history:: Smoking status: Patient denies any tobacco usage or history of. ROS: 01:21 Constitutional: Negative for fever, and chills. Neck: Negative for injury, pain, and ms3 swelling, Cardiovascular: Negative for chest pain, and palpitations. Respiratory: Negative for shortness of breath, cough, wheezing, and pleuritic chest pain, MS/Extremity: Negative for injury and deformity, Skin: Negative for injury, rash, and discoloration, Neuro: Negative for headache, weakness, numbness, tingling. 01:21 Abdomen/GI: Positive for abdominal pain, nausea, Negative for vomiting, diarrhea. 01:21 All other systems are negative. Exam: 01:21 Constitutional: This is a well developed, well nourished patient who is awake, alert, ms3 and in no acute distress. Head/Face: Normocephalic, atraumatic. Neck: Trachea midline, no cervical lymphadenopathy. Supple, full range of motion without nuchal rigidity, or vertebral point tenderness. No Meningismus. Chest/axilla: Normal chest wall appearance and motion. Nontender with no deformity. Cardiovascular: Regular rate and rhythm with a normal S1 and S2. No gallops, murmurs, or rubs. Normal PMI, no JVD. No pulse deficits. Respiratory: Lungs have equal breath sounds bilaterally, clear to auscultation and percussion. No rales, rhonchi or wheezes noted. No increased work of breathing, no retractions or nasal flaring. Skin: Warm, dry with normal turgor. Normal color with no rashes, no lesions, and no evidence of cellulitis. MS/ Extremity: Pulses equal, no cyanosis. Neurovascular intact. Full, normal range of motion. Neuro: Awake and alert, GCS 15, oriented to person, place, time, and situation. Cranial nerves II-XII grossly intact. Motor strength 5/5 in all extremities. Sensory grossly intact. Cerebellar exam normal. Normal gait. Psych: Awake, alert, with orientation to person, place and time. Behavior, mood, and affect are within normal limits. 01:21 Abdomen/GI: Inspection: abdomen appears normal, Bowel sounds: normal, in all quadrants, Palpation: moderate abdominal tenderness, in the epigastric area. Vital Signs: 00:13 BP 107 / 76; Pulse 74; Resp 20 S; Temp 98.2(O); Pulse Ox 98% on R/A; Weight 68.04 kg as6 (R); Height 5 ft. 8 in. (172.72 cm) (R); Pain 10/10; 00:46 BP 91 / 58; Pulse 73; Resp 19; Pulse Ox 98% on R/A; ke1 00:51 BP 101 / 66; Pulse 65; Resp 18; ke1 02:38 BP 105 / 64; Pulse 62; Resp 18; Pulse Ox 100% on R/A; ke1 00:13 Body Mass Index 22.81 (68.04 kg, 172.72 cm) as6 MDM: 00:19 Patient medically screened. ms3 01:21 Differential diagnosis: Nonspecific abd pain, gastritis, pancreatitis. ms3 02:31 Data reviewed: vital signs, nurses notes, lab test result(s), radiologic studies, CT ms3 scan. Data interpreted: Pulse oximetry: on room air is 98 %. Interpretation: normal. Counseling: I had a detailed discussion with the patient and/or guardian regarding: the historical points, exam findings, and any diagnostic results supporting the discharge/admit diagnosis, lab results, radiology results, the need for outpatient follow up, to return to the emergency department if symptoms worsen or persist or if there are any questions or concerns that arise at home. ED course: Discussed labs, CT, physical exam findings with patient. Patient to follow-up with Dr. Brewster in 2 to 3 days. Patient understands and agrees with plan. All questions were answered. Return precautions discussed include worsening symptoms, or any other concerns. On reevaluation patient's pain is resolved, abdomen is benign, patient is alert and oriented x4, no apparent distress, nontoxic-appearing, ambulatory in the emergency department. 09/17 00:20 Order name: CBC with Diff; Complete Time: 02:19 ms3 09/17 00:20 Order name: CMP; Complete Time: 02:19 ms3 09/17 02:28 Interpretation: Within normal limits. ms3 09/17 00:20 Order name: Lipase; Complete Time: 02:19 ms3 09/17 00:20 Order name: Urine Microscopic Only; Complete Time: 02:19 ms3 09/17 02:28 Interpretation: Abnormal: BUD PRESENT. ms3 09/17 01:16 Order name: Urine --Ancillary (enter results); Complete Time: 02:19 cs9 09/17 01:17 Order name: Urine Dipstick-Ancillary; Complete Time: 02:19 EDMS 09/17 00:20 Order name: CT Abd/Pelvis - IV Contrast Only ms3 09/17 00:20 Order name: IV Saline Lock; Complete Time: 00:26 ms3 09/17 00:20 Order name: Labs collected and sent; Complete Time: 00:31 ms3 09/17 00:20 Order name: Urine Dipstick-Ancillary (obtain specimen); Complete Time: 01:44 ms3 09/17 02:05 Order name: Urine Culture EDMS 09/17 00:20 Order name: Urine Test (obtain specimen); Complete Time: 01:57 ms3 Administered Medications: 00:40 Drug: Pepcid (famotidine) 20 mg Route: IVP; Site: left antecubital; ke1 01:30 Follow up: Response: Marked relief of symptoms ke1 00:40 Drug: Zofran (Ondansetron) 4 mg Route: IVP; Site: left antecubital; ke1 01:30 Follow up: Response: Marked relief of symptoms ke1 00:40 Drug: GI Cocktail without - (Maalox Suspension 30 ml, Lidocaine Liquid 2 % 15 ke1 ml) Route: PO; 01:30 Follow up: Response: Pain is decreased ke1 Disposition Summary: 09/17/21 02:31 Discharge Ordered Location: Home ms3 Problem: new ms3 Symptoms: have improved ms3 Condition: Stable ms3 Diagnosis - Other cholelithiasis without obstruction ms3 - Upper abdominal pain, unspecified ms3 Followup: ms3 - With: Giovanni Brewster MD - When: 2 - 3 days - Reason: Recheck today's complaints Discharge Instructions: - Discharge Summary Sheet ms3 - Abdominal Pain, Adult ms3 - Cholelithiasis, [id number] ms3 Forms: - Medication Reconciliation Form ms3 - Thank You Letter ms3 - Antibiotic Education ms3 - Prescription Opioid Use ms3 Signatures: Dispatcher [employer] EDMS Frankie Fink DO DO ms3 Justino Amezcua RN RN as6 Jaskaran Moody RN RN ke1 Shikha Richard PA PA sb3
--- NOTE | 2021-09-17 02:31 | ER ---
Nurse's Notes [facility] Name: Hellen Leyva Age: 25 yrs Sex: Female : 1995 Arrival Date: 09/16/2021 Time: 23:59 Bed 18 Private MD: Diagnosis: Other cholelithiasis without obstruction;Upper abdominal pain, unspecified Presentation: 09/17 00:13 Chief complaint: Patient states: "I've been having abdominal pain all week but today it as6 has just gotten a lot worse". Coronavirus screen: At this time, the client does not indicate any symptoms associated with coronavirus-19. Ebola Screen: No symptoms or risks identified at this time. Initial Sepsis Screen: Does the patient meet any 2 criteria? No. Patient's initial sepsis screen is negative. Does the patient have a suspected source of infection? No. Patient's initial sepsis screen is negative. Risk Assessment: Do you want to hurt yourself or someone else? Patient reports no desire to harm self or others. Onset of symptoms is unknown. 00:13 Method Of Arrival: Ambulatory as6 00:13 Acuity: LENORE 3 as6 Triage Assessment: 00:15 General: Appears in no apparent distress. uncomfortable, Behavior is cooperative, as6 restless. Pain: Complains of pain in epigastric area Pain currently is 10 out of 10 on a pain scale. Quality of pain is described as sharp. Neuro: Level of Consciousness is awake, alert, obeys commands, Oriented to person, place, time, situation, Reports dizziness. Cardiovascular: Capillary refill < 3 seconds Patient's skin is warm and dry. Respiratory: Airway is patent Trachea midline Respiratory effort is even, unlabored, Respiratory pattern is regular, symmetrical. GI: Reports upper abdominal pain, nausea. 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 - Social history:: Smoking status: Patient denies any tobacco usage or history of. Screenin:44 Abuse screen: Denies threats or abuse. Nutritional screening: No deficits noted. ke1 Tuberculosis screening: No symptoms or risk factors identified. Fall Risk No fall in past 12 months (0 pts). No secondary diagnosis (0 pts). IV access (20 points). Ambulatory Aid- None/Bed Rest/Nurse Assist (0 pts). Gait- Normal/Bed Rest/Wheelchair (0 pts) Mental Status- Oriented to own ability (0 pts). Total Austin Fall Scale indicates No Risk (0-24 pts). Assessment: 00:42 General: Appears uncomfortable, Behavior is cooperative. Pain: Complains of pain in ke1 abdomen and epigastric area Pain currently is 10 out of 10 on a pain scale. at worst was 10 out of 10 on a pain scale. level that patient reports is acceptable is 5 out of 10 on a pain scale. Quality of pain is described as aching. Neuro: Level of Consciousness is awake, alert, Oriented to person, place, time, situation. Cardiovascular: No deficits noted. Respiratory: No deficits noted. GI: Bowel sounds present X 4 quads. Abd is soft Abdomen is tender to palpation in umbilical area, right upper quadrant, left upper quadrant, right lower quadrant and left lower quadrant. 01:21 Reassessment: Patient denies pain at this time. Patient states feeling better. ke1 Vital Signs: 00:13 BP 107 / 76; Pulse 74; Resp 20 S; Temp 98.2(O); Pulse Ox 98% on R/A; Weight 68.04 kg as6 (R); Height 5 ft. 8 in. (172.72 cm) (R); Pain 10/10; 00:46 BP 91 / 58; Pulse 73; Resp 19; Pulse Ox 98% on R/A; ke1 00:51 BP 101 / 66; Pulse 65; Resp 18; ke1 02:38 BP 105 / 64; Pulse 62; Resp 18; Pulse Ox 100% on R/A; ke1 00:13 Body Mass Index 22.81 (68.04 kg, 172.72 cm) as6 ED Course: 09/16 23:59 Patient arrived in ED. kz 09/17 00:00 Frankie Fink DO is Attending Physician. ms3 00:07 Jaskaran Moody, RN is Primary Nurse. ke1 00:15 Triage completed. as6 00:16 Arm band placed on. as6 00:25 Inserted saline lock: 20 gauge in left antecubital area, using aseptic technique. ke1 00:44 Bed in low position. Call light in reach. ke1 01:53 CT Abd/Pelvis - IV Contrast Only In Process Unspecified. EDMS 02:30 Giovanni Brewster MD is Referral Physician. ms3 02:33 No provider procedures requiring assistance completed. IV discontinued. ke1 Administered Medications: 00:40 Drug: Pepcid (famotidine) 20 mg Route: IVP; Site: left antecubital; ke1 01:30 Follow up: Response: Marked relief of symptoms ke1 00:40 Drug: Zofran (Ondansetron) 4 mg Route: IVP; Site: left antecubital; ke1 01:30 Follow up: Response: Marked relief of symptoms ke1 00:40 Drug: GI Cocktail without - (Maalox Suspension 30 ml, Lidocaine Liquid 2 % 15 ke1 ml) Route: PO; 01:30 Follow up: Response: Pain is decreased ke1 Outcome: 02:31 Discharge ordered by . ms3 02:34 Discharged to home ambulatory. ke1 02:34 Condition: good 02:34 Discharge instructions given to patient. 02:39 Patient left the ED. ke1 Signatures: Dispatcher [employer] EDMS Frankie Fink DO DO ms3 Justino Amezcua, RN RN as6 Jaskaran Moody RN RN ke1 Rachelle Root
[2021-09-17 09:25] VITALS: TEMP 98.2
[2021-09-17 09:29] VITALS: BP 105/64; O2SAT 100
--- NOTE | 2021-09-19 12:54 | RAD REPORT ---
EXAM DESCRIPTION: CT - Abdomen Pelvis W Contrast - 09/17/2021 6:57 am CLINICAL HISTORY: The patient is 25 years old and is Female; ABD PAIN TECHNIQUE: Axial computed tomography images of the abdomen and pelvis with intravenous contrast. S agittal and coronal reformatted images were created and reviewed. This CT exam was performed using one or more of the following dose reduction techniques: automated exposure control, adjustment of t he mA and/or kV according to patient size, and/or use of iterative reconstruction technique. COMPARISON: No relevant prior studies available. FINDINGS: LUNG BASES: Unremarkable. No mass. No consolidation. ABDOMEN: LIVER: Unremarkable. No mass. GALLBLADDER AND BILE DUCTS: Calcified gallstones are present within the gallbladder which is con tracted. There is no ductal dilatation. PANCREAS: No ductal dilation. No mass. SPLEEN: A splenule is present within the left upper quadrant. The spleen is homogeneous. ADRENALS: Unremarkable. No mass. KIDNEYS AND URETERS: Unremarkable. The kidneys enhance symmetrically. No obstructing renal or ur eteral calculus is seen. No hydronephrosis or hydroureter. No perinephric fluid or stranding. STOMACH AND BOWEL: The stomach is distended with food contents. The small bowel is normal in marie iber. Stool is present throughout colon. There is no mucosal thickening or evidence of bowel obstruct ion. PELVIS: APPENDIX: The appendix is normal in caliber without surrounding inflammation. BLADDER: Unremarkable. No mass. REPRODUCTIVE: 2 cm right ovarian cyst is present. No follow-up imaging is recommended. The uteru s and left ovary are normal. ABDOMEN and PELVIS: INTRAPERITONEAL SPACE: Unremarkable. No free air. No significant fluid collection. BONES/JOINTS: No acute fracture. SOFT TISSUES: The soft tissues are normal. VASCULATURE: Unremarkable. No abdominal aortic aneurysm. LYMPH NODES: Unremarkable. No enlarged lymph nodes. IMPRESSION: Cholelithiasis without findings to suggest cholecystitis. Electronically signed by: Chelsea Morgan MD 09/17/2021 2:18 AM CDT Due to temporary technical issues with the PACS/Fluency reporting system, reports are being signed by the in house radiologist without review as a courtesy to ensure prompt reporting. The interpreting r adiologist is fully responsible for the content of the report.
== END 2021-09-17 02:39 | disposition home or self-care (01) ==
LOC: ER 23:57
DX: K80.80 Other cholelithiasis without obstruction (principal); R11.0 Nausea
CPT/HCPCS: 87088; 85025; 87086; 36415; 81025; 83690; 80053; 74177; 96375; 96374; 99284; Q9967; J2405; 81003; 81015

== ENCOUNTER 2021-10-05 05:59 | Day surgery (SDC) | payer OTHER ==
[2021-10-05] MEDS ORDERED: CEFOXITIN SODIUM 1 GM/VIAL ONE (06:26)
[2021-10-05] MEDS ORDERED: Ringers Lactate 1,000 ML IV ONE (06:26)
[2021-10-05] MEDS ORDERED: BUPIVACAINE 0.25% PF 10 ML VIAL ONE (07:20)
[2021-10-05] MEDS ORDERED: propofoL 200 MG/20 ML VIAL IV ONE (07:22)
[2021-10-05] MEDS ORDERED: LIDOCAINE 2% MPF 5 ML VIAL ONE (07:23)
[2021-10-05] MEDS ORDERED: FENTANYL CITR 100 MCG/2 ML ONE (07:23)
[2021-10-05] MEDS ORDERED: MIDAZOLAM HCL 2 MG/2 ML INJ ONE (07:23)
[2021-10-05] MEDS ORDERED: ROCURONIUM 50 MG/5 ML VIAL IV ONE (07:23)
[2021-10-05] MEDS ORDERED: ONDANSETRON 4 MG/2 ML VIAL ONE ×2 (07:27→07:53)
[2021-10-05] MEDS ORDERED: BUPIVACAINE 0.25% PF 10 ML VIAL IJ ONE ×2 (07:42)
[2021-10-05] MEDS ORDERED: dexAMETHasone 4 MG/ML VIAL ONE (07:53)
--- NOTE | 2021-10-05 08:24 | P.OP ---
Preoperative diagnosis: Cholecystitis with Cholelithiasis Postoperative diagnosis: Cholecystitis with Cholelithiasis Primary procedure: Laparoscopic Cholecystectomy with ICG Cholangiography Anesthesia: GETA + Local Estimated blood loss: <10cc Specimen: gallbladder Findings: distended gallbladder with stones Complications: None Transferred to: Recovery Room Condition: Good
[2021-10-05] MEDS ORDERED: GLYCOPYRROLATE 0.2 MG/ML SYR ONE (08:38)
[2021-10-05] MEDS ORDERED: NEOSTIGMINE 1 MG/ML -5 ML ONE (08:38)
[2021-10-05] MEDS ORDERED: KETOROLAC 30 MG/ML INJ ONE (08:46)
[2021-10-05] MEDS ORDERED: MEPERIDINE HCL 25 MG/ML SYR ONE (08:51)
[2021-10-05] MEDS: FENTANYL CITR 100 MCG/2 ML ONE ×2 (08:55→09:10)
--- NOTE | 2021-10-05 09:09 | OP ---
Date of Procedure: 10/05/2021 Surgeon: Giovanni Brewster MD, Preoperative Diagnosis: Cholecystitis with cholelithiasis. Postoperative Diagnosis: Cholecystitis with cholelithiasis. Procedures Performed: Laparoscopic cholecystectomy with ICG that is indocyanine green cholangiograph y. Anesthesia: General endotracheal plus local with 0.25% Marcaine. Estimated Blood Loss: Less than 10 mL. Specimen: Gallbladder. Findings: Distended gallbladder with stones. Complications: None. Disposition: The patient was transferred to the recovery room in good condition. Procedure In Detail: After informed consent was obtained, the patient was brought to the operating r oom, prepped and draped in the usual sterile fashion after adequate anesthesia was achieved. A supra umbilical area was anesthetized with 0.25% Marcaine, sharply incised. A 5 mm trocar was placed under direct visualization without evidence of complication. Insufflation was obtained to 15 mmHg at this time. There was no injury to vital structures upon entry into the abdomen. Two additional trocars were placed, 1 in the epigastrium and 1 in the right upper quadrant. This was similarly anesthetized and sharply incised. A 5 mm trocar was placed under direct vision without evidence of complication. The umbilical trocar was upsized to a 12 mm under direct visualization without evidence of complica tion. The patient was positioned head up right-side up position. Ratcheted grasper was used to gras p the patient's gallbladder and placed towards the patient's right shoulder. Dissection continued do wn to remove adhesions from the anterior surface of the gallbladder. The gallbladder was quite diste nded, but able to be grasped and positioned appropriately. Dissection continued down to the confluen ce of the cystic duct and common duct junction. ICG cholangiography confirmed the position of the cy stic duct, common duct junction. I then skeletonized 2 structures, identified as both the cystic srini t and cystic artery. ICG cholangiography once again confirmed the anatomy and position of the cystic duct. After these structures were skeletonized, then a critical view of safety was obtained. I robbie ble clipped at the proximal side and singly clipped at the distal side of both cystic duct and cystic artery and ligated 2 structures with Endo Fe. I then used the electrocautery to remove the gall bladder off the hepatic fossa without evidence of complication. The gallbladder was placed in EndoCa tch bag and removed through the umbilical trocar and sent off for pathologic examination. I then irr igated the right upper quadrant copiously. No bleeding was appreciated. No hemostatic maneuvers wer e required. The irrigant was completely clear at the end of the procedure, suctioned out until compl etely dry. The patient was positioned back in neutral position. The remaining effluent was suctione d out. I then inspected the clips, found to be in good anatomic position without any leakage of the blood or bile. At this point, I closed the umbilical trocar site using a Luis F-Matt suture pass er with 0 Vicryl in interrupted fashion with good approximation of the tissue. The abdomen was compl etely desufflated under direct visualization without evidence of complication. All skin incisions we re then copiously irrigated and closed with a 4-0 Monocryl in a running fashion. Dermabond placed ov er top. The patient tolerated the procedure well without evidence of complication and transferred to PACU in good condition. All counts were correct at the end of the case. ELIEL/FRED Voice ID: [id number] Report ID: [id number]
[2021-10-05 09:13] VITALS: O2SAT 100
[2021-10-05 09:42] VITALS: BP 116/65
[2021-10-05 11:10] VITALS: TEMP 97.6
== END 2021-10-05 10:57 | disposition home or self-care (01) ==
LOC: OR 05:59
PROVIDERS: ATTEND Surgery
PROC: BF13YZZ Fluoroscopy of Gallbladder and Bile Ducts using Other Contrast (ICD-10-PCS; 2021-10-05)
PROC: 0FT44ZZ Resection of Gallbladder, Percutaneous Endoscopic Approach (ICD-10-PCS; principal; 2021-10-05 07:30)
DX: K80.10 Calculus of gallbladder with chronic cholecystitis without obstruction (principal); Z20.822 Contact with and (suspected) exposure to COVID-19
CPT/HCPCS: 81025; 88304; 47563; U0003; J2704; J1100; J2250; J3010 ×2; J2175; J2710; J7120; J0694; J2405 ×2